=== PATIENT | male | born 1940 | race Caucasian/White ===

== ENCOUNTER → 2017-09-09 | Outpatient (CLI) | payer MEDICARE, SELFPAY ==
[~2017-09-09] MED LIST: ABAC300; ACET325 PO; ALBU90OI; ALBU90OI6 INH; ALUM-MAG HYDRO360 ML PO; ALUM320SU PO; AMLO10 PO; AMLO5 PO; ASCO500 PO; ASPI325; ASPI81CH PO; ASPI81EC PO; Adult Low Dose81 MG PO; Avodart0.5 MG PO; Bactrim 400-801 EACH; Bactrim 400-801 EACH PO; CARV6.25 PO; CHOL10002 PO; CIPR250 PO; CIPR500 PO; CLON.5 PO; CLOP75; CLOP75 PO; Cipro500 MG PO; Coreg6.25 MG PO; DIALYVITE WITH1 EACH; DULO30 PO; DUTA.5 PO; Dialyvite Tabl1 EACH PO; Doxycycline150 MG PO; FERR325 PO; FURO80 PO; GABA100 PO; HYDACE5325 PO; HYDCHL25 PO; HYDROCODON-ACE1 EAC2 PO; Hydrochlorothia25 MG PO; IBUP800 PO; Isosorbide Mono30 MG PO; LIDO700A20 TOP; LOSA25 PO; LOSA50 PO; MAG-OXIDE200 MG PO; METO25ER; NITR.3SL SL; NITR.4SL SL; NYST100000 PO; Norco 10-325 T1 EACH PO; Norvasc2.5 MG PO; Norvasc5 MG PO; OLOP.1OPSO; OMEP40CA12 PO; OXYACE5T PO; Omeprazole20 M1; PANT20 PO; PRAV20 PO; PRED20 PO; PREG75 PO; Percocet 5-3251 EACH PO; Prednisone20 MG PO; RANI150 PO; RXOXYACE PO; Rena-Vite Tabl0.8 MG PO; Robaxin-750750 MG PO; SEVE800 PO; SILD50TA PO; SODBIC650 PO; Super B With V1 EACH PO; Super B-50 Com1 EACH PO; TAMS.4ER; TAMS.4ER PO; TELM40; TESTTP TOP; TRAM50 PO; XARELTO15 MG PO; Zofran Odt4 MG PO
[2017-09-09 07:41] LABS: BASOPHILS ABSOLUTE AUTO 0.06 K/mm3 (0.00-0.23); BASOPHILS PERCENT AUTO 1 % (0-2); EOSINOPHILS ABSOLUTE AUTO 0.02 K/mm3 (0.00-0.68); EOSINOPHILS PERCENT AUTO 0 % (0-6); Hematocrit 35.8 % (37.0-53.0); Hemoglobin 11.6 g/dL (13.5-17.5); IMMATURE GRAN ABSOLUTE AUTO 0.13 K/mm3 (0.00-0.10); IMMATURE GRAN PERCENT AUTO 2 % (0-1); LYMPHOCYTES ABSOLUTE AUTO 1.67 K/mm3 (0.84-5.20); LYMPHOCYTES PERCENT AUTO 20 % (21-46); MONOCYTES ABSOLUTE AUTO 0.64 K/mm3 (0.16-1.47); MONOCYTES PERCENT AUTO 8 % (4-13); Mean Corpuscular HGB 31.2 pg (26.0-34.0); Mean Corpuscular HGB Conc 32.4 g/dL (31.5-36.5); Mean Corpuscular Volume 96 fL (80-100); Mean Platelet Volume 9.5 fL (9.1-12.4); NEUTROPHILS ABSOLUTE AUTO 5.76 K/mm3 (1.96-9.15); NEUTROPHILS PERCENT AUTO 70 % (41-73); Platelet Count 258 K/mm3 (150-400); RDW Coefficient Variation 14.6 % (11.7-14.2); RDW Standard Deviation 51.9 fL (35.1-46.3); Red Blood Cell Count 3.72 M/mm3 (4.30-5.90); White Blood Cell Count 8.28 K/mm3 (4.00-11.30)
== END | disposition home or self-care (01) ==
LOC: LAB 06:50
PROVIDERS: Internal Medicine
DX: N18.6 End stage renal disease (principal)
CPT/HCPCS: 85025

== ENCOUNTER 2017-10-02 13:15 | Emergency (ER) | payer MEDICARE, SELFPAY ==
[~2017-10-02] VITALS: Ht 175.3 cm; Wt 73.5 kg
[~2017-10-02 13:15] MED LIST changes: -ACET325 PO; -Avodart0.5 MG PO; -CLOP75 PO; -DULO30 PO; -Dialyvite Tabl1 EACH PO; -Doxycycline150 MG PO; -LIDO700A20 TOP; -PREG75 PO; -SEVE800 PO; -TRAM50 PO
[2017-10-02 13:53] LABS: BASOPHILS ABSOLUTE AUTO 0.05 K/mm3 (0.00-0.23); BASOPHILS PERCENT AUTO 1 % (0-2); EOSINOPHILS ABSOLUTE AUTO 0.16 K/mm3 (0.00-0.68); EOSINOPHILS PERCENT AUTO 3 % (0-6); Hematocrit 31.8 % (37.0-53.0); IMMATURE GRAN ABSOLUTE AUTO 0.13 K/mm3 (0.00-0.10); IMMATURE GRAN PERCENT AUTO 2 % (0-1); LYMPHOCYTES ABSOLUTE AUTO 1.13 K/mm3 (0.84-5.20); LYMPHOCYTES PERCENT AUTO 18 % (21-46); MONOCYTES ABSOLUTE AUTO 1.62 K/mm3 (0.16-1.47); MONOCYTES PERCENT AUTO 26 % (4-13); Mean Corpuscular HGB 30.5 pg (26.0-34.0); Mean Corpuscular HGB Conc 31.4 g/dL (31.5-36.5); Mean Corpuscular Volume 97 fL (80-100); Mean Platelet Volume 9.8 fL (9.1-12.4); NEUTROPHILS PERCENT AUTO 51 % (41-73); Platelet Count 266 K/mm3 (150-400); RDW Coefficient Variation 13.4 % (11.7-14.2); RDW Standard Deviation 47.7 fL (35.1-46.3); Red Blood Cell Count 3.28 M/mm3 (4.30-5.90); White Blood Cell Count 6.29 K/mm3 (4.00-11.30)
[2017-10-02] MEDS ORDERED: DULO30 PO (13:56)
[2017-10-02] MEDS ORDERED: CLOP75 PO (13:58)
[2017-10-02 14:15] LABS: Albumin, Blood 2.8 g/dL (3.4-5.0); Albumin/Globulin Ratio 0.8 (0.8-1.8); Bilirubin, Total 0.4 mg/dL (0.1-1.0); Bun/Creatinine Ratio 3.3 (12.0-20.0); Calcium, Blood 8.5 mg/dL (8.5-10.1); Creatinine, Blood 3.04 mg/dL (0.60-1.20); Globulin, Blood 3.3 g/dL (2.2-4.0); Potassium, Blood 3.8 mmol/L (3.5-5.5); Total Protein, Blood 6.1 g/dL (6.4-8.2)
[2018-04-22] MEDS ORDERED: Avodart0.5 MG PO (16:39)
[2018-04-22] MEDS ORDERED: CHOL10002 PO (16:39)
[2018-04-22] MEDS ORDERED: Dialyvite Tabl1 EACH PO (16:39)
[2018-04-22] MEDS ORDERED: TRAM50 PO (16:40)
[2018-04-22] MEDS ORDERED: ACET325 PO (16:45)
[2018-04-22] MEDS ORDERED: PREG75 PO (16:45)
[2018-04-22] MEDS ORDERED: SEVE800 PO (16:45)
[2018-04-22] MEDS ORDERED: Doxycycline150 MG PO (16:46)
[2018-04-24] MEDS ORDERED: LIDO700A20 TOP (13:24)
== END 2017-10-02 17:17 | disposition home or self-care (01) ==
LOC: ER 13:15
PROVIDERS: Psychiatry & Neurology Psychiatry
DX: I95.1 Orthostatic hypotension (principal); R42 Dizziness and giddiness; Z88.5 Allergy status to narcotic agent; Z88.8 Allergy status to other drugs, medicaments and biological substances; Z79.899 Other long term (current) drug therapy; Z79.52 Long term (current) use of systemic steroids; Z79.82 Long term (current) use of aspirin; Z86.73 Personal history of transient ischemic attack (TIA), and cerebral infarction without residual deficits; Z87.891 Personal history of nicotine dependence; Z85.51 Personal history of malignant neoplasm of bladder
CPT/HCPCS: 36415; 70450; 80053; 85025; 93005; 93010; 99284

== ENCOUNTER → 2017-11-29 | Outpatient (CLI) | payer MEDICARE, SELFPAY ==
[~2017-11-29] MED LIST changes: +CLOP75 PO; +DULO30 PO; +LOSA25
[2017-11-29 12:43] LABS: Appearance, Urine Clear (Clear); Bilirubin, Urine Neg (Neg); Blood, Urine Neg (Neg); Color, Urine Yellow (P-Yellow); Glucose Qualitative, Urine Neg (Neg); Ketones, Urine Neg (Neg); Leukocyte Esterase, Urine Neg (Neg); Nitrite, Urine Neg (Neg); Protein, Urine 3+ (Neg); Specific Gravity, Urine 1.015 (1.003-1.022); Urobilinogen, Urine NORM (Normal)
[2017-11-29 12:55] LABS: Red Blood Cells, Urine 0-2 /hpf (0-2); Squamous Epithelial Cells Few /hpf (Few)
[2017-11-29 12:56] LABS: Bacteria Not Seen /hpf
== END ==
LOC: LAB 10:15 → LAB SHORT 10:15
PROVIDERS: Internal Medicine
DX: R39.15 Urgency of urination (principal)
CPT/HCPCS: 81001

== ENCOUNTER → 2018-02-16 | Outpatient (CLI) | payer MEDICARE ==
[2018-02-16 16:48] LABS: BASOPHILS ABSOLUTE AUTO 0.05 K/mm3 (0.00-0.23); BASOPHILS PERCENT AUTO 1 % (0-2); EOSINOPHILS ABSOLUTE AUTO 0.12 K/mm3 (0.00-0.68); EOSINOPHILS PERCENT AUTO 1 % (0-6); Hematocrit 33.5 % (37.0-53.0); Hemoglobin 10.9 g/dL (13.5-17.5); IMMATURE GRAN ABSOLUTE AUTO 0.09 K/mm3 (0.00-0.10); IMMATURE GRAN PERCENT AUTO 1 % (0-1); LYMPHOCYTES ABSOLUTE AUTO 1.31 K/mm3 (0.84-5.20); LYMPHOCYTES PERCENT AUTO 12 % (21-46); MONOCYTES ABSOLUTE AUTO 1.47 K/mm3 (0.16-1.47); MONOCYTES PERCENT AUTO 14 % (4-13); Mean Corpuscular HGB 29.5 pg (26.0-34.0); Mean Corpuscular HGB Conc 32.5 g/dL (31.5-36.5); Mean Corpuscular Volume 91 fL (80-100); Mean Platelet Volume 10.5 fL (9.1-12.4); NEUTROPHILS ABSOLUTE AUTO 7.78 K/mm3 (1.96-9.15); NEUTROPHILS PERCENT AUTO 72 % (41-73); Platelet Count 270 K/mm3 (150-400); RDW Coefficient Variation 14.2 % (11.7-14.2); RDW Standard Deviation 46.2 fL (35.1-46.3); Red Blood Cell Count 3.69 M/mm3 (4.30-5.90); White Blood Cell Count 10.82 K/mm3 (4.00-11.30)
[2018-02-16 17:02] LABS: Albumin, Blood 2.9 g/dL (3.4-5.0); Albumin/Globulin Ratio 0.7 (0.8-1.8); Bilirubin, Total 0.3 mg/dL (0.1-1.0); Calcium, Blood 9.3 mg/dL (8.5-10.1); Potassium, Blood 4.4 mmol/L (3.5-5.5); Total Protein, Blood 6.9 g/dL (6.4-8.2)
[2018-02-16 17:10] LABS: Source, Urine Clean Catch
[2018-02-16 17:13] LABS: Creatinine, Blood 8.38 mg/dL (0.60-1.20)
[2018-02-16 17:33] LABS: Bacteria Mod /hpf; Squamous Epithelial Cells Few /hpf (Few); White Blood Cells, Urine TNTC /hpf (0-5)
== END | disposition home or self-care (01) ==
LOC: LAB SHORT 16:44 → LAB EV 16:44
PROVIDERS: General Practice
DX: R30.0 Dysuria (principal)
CPT/HCPCS: 80053; 81015; 85025

== ENCOUNTER → 2019-02-22 | Outpatient (CLI) | payer MEDICARE ==
[~2019-02-22] MED LIST changes: +ACET325 PO; +Avodart0.5 MG PO; +Dialyvite Tabl1 EACH PO; +Doxycycline150 MG PO; +LIDO700A20 TOP; -LOSA25; +PREG75 PO; +SEVE800 PO; +TRAM50 PO
== END | disposition home or self-care (01) ==
LOC: LAB SHORT 12:51 → LAB EV 12:51
DX: L03.116 Cellulitis of left lower limb (principal)
CPT/HCPCS: 87070; 87205

== ENCOUNTER 2019-04-10 14:02 | Emergency (ER) | payer MEDICARE ==
[~2019-04-10] VITALS: Ht 175.3 cm; Wt 72.6 kg
[2019-04-10 14:35] LABS: BASOPHILS ABSOLUTE AUTO 0.07 K/mm3 (0.00-0.23); BASOPHILS PERCENT AUTO 1 % (0-2); EOSINOPHILS ABSOLUTE AUTO 0.15 K/mm3 (0.00-0.68); EOSINOPHILS PERCENT AUTO 1 % (0-6); Hematocrit 38.9 % (37.0-53.0); Hemoglobin 12.3 g/dL (13.5-17.5); IMMATURE GRAN ABSOLUTE AUTO 0.04 K/mm3 (0.00-0.10); IMMATURE GRAN PERCENT AUTO 0 % (0-1); LYMPHOCYTES ABSOLUTE AUTO 2.02 K/mm3 (0.84-5.20); LYMPHOCYTES PERCENT AUTO 15 % (21-46); MONOCYTES ABSOLUTE AUTO 1.82 K/mm3 (0.16-1.47); MONOCYTES PERCENT AUTO 14 % (4-13); Mean Corpuscular HGB 30.8 pg (26.0-34.0); Mean Corpuscular HGB Conc 31.6 g/dL (31.5-36.5); Mean Corpuscular Volume 97 fL (80-100); Mean Platelet Volume 9.8 fL (9.1-12.4); NEUTROPHILS ABSOLUTE AUTO 9.07 K/mm3 (1.96-9.15); NEUTROPHILS PERCENT AUTO 69 % (41-73); Platelet Count 231 K/mm3 (150-400); RDW Coefficient Variation 13.8 % (11.7-14.2); RDW Standard Deviation 49.9 fL (35.1-46.3); White Blood Cell Count 13.17 K/mm3 (4.00-11.30)
[2019-04-10 14:50] LABS: International Normalized Ratio 1.01; Prothrombin Time Results 10.7 Sec (9.7-11.5)
[2019-04-10 14:58] LABS: Source, Urine Catheter
[2019-04-10 15:04] LABS: Albumin/Globulin Ratio 0.8 (0.8-1.8); Bilirubin, Total 0.3 mg/dL (0.1-1.0); Bun/Creatinine Ratio 11.7 (12.0-20.0); Calcium, Blood 8.6 mg/dL (8.5-10.1); Creatinine, Blood 7.18 mg/dL (0.60-1.20); Potassium, Blood 5.6 mmol/L (3.5-5.5)
[2019-04-10 15:05] LABS: Appearance, Urine Hazy (Clear); Bilirubin, Urine Neg (Neg); Blood, Urine 2+ (Neg); Color, Urine Yellow (P-Yellow); Glucose Qualitative, Urine Neg (Neg); Ketones, Urine Neg (Neg); Leukocyte Esterase, Urine 3+ (Neg); Nitrite, Urine Neg (Neg); Protein, Urine 3+ (Neg); Specific Gravity, Urine 1.015 (1.003-1.022); Urobilinogen, Urine NORM (Normal)
[2019-04-10 15:25] LABS: White Blood Cells, Urine 50-100 /hpf (0-5)
[2019-04-10 15:26] LABS: Bacteria Mod /hpf; Squamous Epithelial Cells Mod /hpf (Few)
--- NOTE | 2019-04-10 17:01 | NUR ---
PERITONEAL EFFLUENT SAMPLE OBTAINED FROM PATIENT ADMITTED TO ED DUE TO COMPLAINT OF STEWART BLOOD IN CCPD LAST DRAIN THIS MORNING. DR MARAVILLA ORDERED CULTURE, GRAM STAIN, CELL COUNT AND DIFFERENTIAL. SAMPLE OBTAINED AND TRANSPORTED TO LAB. SAMPLE APPEARANCE IS CLEAR, TATUM, WITH NO EVIDENT RBC'S.
[2019-04-10 17:12] LABS: Automated BF WBC Count 0.023 K/mm3 (0-999); Body Fluid WBC Count 23 /mm3 (0-999)
[2019-04-10 17:37] LABS: RBC Count, Body Fluid 26 /mm3 (0-0)
[2019-04-10 17:57] LABS: Appearance, Body Fluid Clear (Clear); Color, Body Fluid No color (None-Yellow); Total Cell Count, Body Fluid 100
== END 2019-04-10 18:51 | disposition home or self-care (01) ==
LOC: ER 14:02
PROVIDERS: Internal Medicine; Physician Assistant
DX: T83.83XA Hemorrhage due to genitourinary prosthetic devices, implants and grafts, initial encounter (principal); N18.6 End stage renal disease; N39.0 Urinary tract infection, site not specified; N19 Unspecified kidney failure; Z88.5 Allergy status to narcotic agent; Z88.8 Allergy status to other drugs, medicaments and biological substances; Z79.82 Long term (current) use of aspirin; Z79.899 Other long term (current) drug therapy; Z86.73 Personal history of transient ischemic attack (TIA), and cerebral infarction without residual deficits; Z87.891 Personal history of nicotine dependence
CPT/HCPCS: 36415; 71046; 74176; 80053; 81001; 83605; 85025; 85610; 85730; 87040; 87070; 87086; 87205; 89051; 93005; 93010; 99284-25

== ENCOUNTER 2019-07-14 14:05 | Emergency (ER) | payer MEDICARE ==
[~2019-07-14] VITALS: Ht 175.3 cm; Wt 72.6 kg
[2019-07-14 15:10] LABS: BASOPHILS ABSOLUTE AUTO 0.06 K/mm3 (0.00-0.23); BASOPHILS PERCENT AUTO 1 % (0-2); EOSINOPHILS ABSOLUTE AUTO 0.16 K/mm3 (0.00-0.68); EOSINOPHILS PERCENT AUTO 2 % (0-6); Hemoglobin 9.4 g/dL (13.5-17.5); IMMATURE GRAN ABSOLUTE AUTO 0.02 K/mm3 (0.00-0.10); IMMATURE GRAN PERCENT AUTO 0 % (0-1); LYMPHOCYTES ABSOLUTE AUTO 1.42 K/mm3 (0.84-5.20); LYMPHOCYTES PERCENT AUTO 15 % (21-46); MONOCYTES PERCENT AUTO 14 % (4-13); Mean Corpuscular HGB 32.4 pg (26.0-34.0); Mean Corpuscular HGB Conc 31.3 g/dL (31.5-36.5); Mean Corpuscular Volume 103 fL (80-100); Mean Platelet Volume 9.7 fL (9.1-12.4); NEUTROPHILS ABSOLUTE AUTO 6.48 K/mm3 (1.96-9.15); NEUTROPHILS PERCENT AUTO 69 % (41-73); Platelet Count 252 K/mm3 (150-400); RDW Coefficient Variation 16.4 % (11.7-14.2); RDW Standard Deviation 60.9 fL (35.1-46.3); White Blood Cell Count 9.44 K/mm3 (4.00-11.30)
[2019-07-14 15:33] LABS: Troponin I <0.015 ng/mL (0.000-0.040)
[2019-07-14 15:41] LABS: Alanine Aminotransfer (ALT/SGP 17 U/L (12-78); Albumin, Blood 2.9 g/dL (3.4-5.0); Albumin/Globulin Ratio 0.8 (0.8-1.8); Alk Phos 49 U/L (50-136); Anion Gap 10 mmol/L (6-16); Aspartate Aminotrans (AST/SGOT 13 U/L (12-37); Bilirubin, Total 0.3 mg/dL (0.1-1.0); Blood Urea Nitrogen 77 mg/dL (8-24); Bun/Creatinine Ratio 8.7 (12.0-20.0); CO2, Blood 28 mmol/L (21-32); Calcium, Blood 9.1 mg/dL (8.5-10.1); Chloride, Blood 102 mmol/L (98-108); Creatinine, Blood 8.88 mg/dL (0.60-1.20); Globulin, Blood 3.6 g/dL (2.2-4.0); Glomerular Filtration Rate 6 (60-); Glucose, Blood 141 mg/dL (70-99); Potassium, Blood 4.5 mmol/L (3.5-5.5); Sodium, Blood 140 mmol/L (136-145); Total Protein, Blood 6.5 g/dL (6.4-8.2)
[2019-07-14] MEDS ORDERED: QUET25 PO (15:58)
== END 2019-07-14 16:08 | disposition home or self-care (01) ==
LOC: ER 14:05
PROVIDERS: Physician Assistant
DX: G47.00 Insomnia, unspecified (principal); F41.1 Generalized anxiety disorder; Z88.8 Allergy status to other drugs, medicaments and biological substances; Z88.5 Allergy status to narcotic agent; Z88.1 Allergy status to other antibiotic agents; Z79.899 Other long term (current) drug therapy; Z79.82 Long term (current) use of aspirin; Z79.891 Long term (current) use of opiate analgesic; N18.6 End stage renal disease; Z99.2 Dependence on renal dialysis; I48.91 Unspecified atrial fibrillation; Z87.891 Personal history of nicotine dependence
CPT/HCPCS: 36415; 71046; 80053; 84484; 85025; 93005; 93010; 99284-25

== ENCOUNTER → 2019-08-28 | Outpatient (CLI) | payer MEDICARE ==
[~2019-08-28] MED LIST changes: +QUET25 PO
[2019-08-28 15:50] LABS: Bilirubin, Urine Neg (Neg); Blood, Urine 2+ (Neg); Glucose Qualitative, Urine Neg (Neg); Ketones, Urine Neg (Neg); Leukocyte Esterase, Urine 3+ (Neg); Nitrite, Urine Neg (Neg); Protein, Urine 2+ (Neg); Urobilinogen, Urine NORM (Normal); pH, Urine 6.5 (5.0-8.0)
[2019-08-28 16:05] LABS: Appearance, Urine Cloudy (Clear); Color, Urine Yellow (P-Yellow)
[2019-08-28 16:06] LABS: Bacteria Many /hpf; Squamous Epithelial Cells Not Seen /hpf (Few); White Blood Cells, Urine TNTC /hpf (0-5)
== END | disposition home or self-care (01) ==
LOC: LAB SHORT 14:58 → OLS 14:58
PROVIDERS: Internal Medicine
DX: N39.0 Urinary tract infection, site not specified (principal); R10.9 Unspecified abdominal pain
CPT/HCPCS: 81001; 87077; 87086; 87186

== ENCOUNTER 2019-09-18 18:15 | Emergency (ER) | payer MEDICARE ==
[~2019-09-18] VITALS: Ht 182.9 cm; Wt 81.7 kg
[2019-09-18] MEDS ORDERED: DIALYVITE 800-1 EAC1 PO (19:22)
[2019-09-18] MEDS ORDERED: CLON.5 PO (19:23)
[2019-09-18] MEDS ORDERED: LOSA25 PO (19:23)
[2019-09-18] MEDS ORDERED: Avodart0.5 MG PO (19:23)
[2019-09-18] MEDS ORDERED: TRAM50 PO (19:24)
[2019-09-18] MEDS ORDERED: FURO80 PO (19:24)
[2019-09-18] MEDS ORDERED: CLOP75 PO (19:24)
[2019-09-18] MEDS ORDERED: Vitamin D2000 UNIT PO (19:24)
[2019-09-18] MEDS ORDERED: Aspirin EC81 MG PO (19:24)
[2019-09-18] MEDS ORDERED: Isosorbide Mono30 MG PO (19:25)
[2019-09-18] MEDS ORDERED: CARV6.25 PO (19:25)
[2019-09-18] MEDS ORDERED: PANT20 PO (19:25)
[2019-09-18] MEDS ORDERED: Pravachol40 MG PO (19:25)
[2019-09-18] MEDS ORDERED: NITR.4SL SL (19:26)
[2019-09-18] MEDS ORDERED: ACET325 PO (19:26)
[2019-09-18] MEDS ORDERED: QUET25 PO (19:27)
[2019-09-18] MEDS ORDERED: Calcium Acetat667 MG PO (19:27)
== END 2019-09-18 23:00 | disposition home or self-care (01) ==
LOC: ER 18:15
DX: F41.9 Anxiety disorder, unspecified (principal); K40.90 Unilateral inguinal hernia, without obstruction or gangrene, not specified as recurrent; Z99.2 Dependence on renal dialysis; Z88.5 Allergy status to narcotic agent; Z88.8 Allergy status to other drugs, medicaments and biological substances; Z79.82 Long term (current) use of aspirin; Z79.899 Other long term (current) drug therapy; N18.6 End stage renal disease; I48.91 Unspecified atrial fibrillation; Z87.891 Personal history of nicotine dependence
CPT/HCPCS: 76857; 96374; 96375; 99284-25; J1170; J2405

== ENCOUNTER 2019-09-22 15:46 | Observation (INO) | payer MEDICARE, OTHER ==
[~2019-09-22] VITALS: Ht 175.3 cm; Wt 72.6 kg
[~2019-09-22 15:46] MED LIST changes: +Aspirin EC81 MG PO; +Calcium Acetat667 MG PO; +DIALYVITE 800-1 EAC1 PO; +Pravachol40 MG PO; +Vitamin D2000 UNIT PO
[2019-09-22 18:56] LABS: BASOPHILS ABSOLUTE AUTO 0.05 K/mm3 (0.00-0.23); BASOPHILS PERCENT AUTO 0 % (0-2); EOSINOPHILS ABSOLUTE AUTO 0.14 K/mm3 (0.00-0.68); EOSINOPHILS PERCENT AUTO 1 % (0-6); Hematocrit 36.4 % (37.0-53.0); Hemoglobin 11.4 g/dL (13.5-17.5); IMMATURE GRAN ABSOLUTE AUTO 0.03 K/mm3 (0.00-0.10); IMMATURE GRAN PERCENT AUTO 0 % (0-1); LYMPHOCYTES ABSOLUTE AUTO 1.22 K/mm3 (0.84-5.20); LYMPHOCYTES PERCENT AUTO 11 % (21-46); MONOCYTES PERCENT AUTO 13 % (4-13); Mean Corpuscular HGB 31.4 pg (26.0-34.0); Mean Corpuscular HGB Conc 31.3 g/dL (31.5-36.5); Mean Corpuscular Volume 100 fL (80-100); Mean Platelet Volume 9.9 fL (9.1-12.4); NEUTROPHILS ABSOLUTE AUTO 8.44 K/mm3 (1.96-9.15); NEUTROPHILS PERCENT AUTO 74 % (41-73); Platelet Count 266 K/mm3 (150-400); RDW Standard Deviation 51.8 fL (35.1-46.3); Red Blood Cell Count 3.63 M/mm3 (4.30-5.90); White Blood Cell Count 11.38 K/mm3 (4.00-11.30)
[2019-09-22 19:13] LABS: Albumin, Blood 2.7 g/dL (3.4-5.0); Albumin/Globulin Ratio 0.7 (0.8-1.8); Bilirubin, Total 0.3 mg/dL (0.1-1.0); Bun/Creatinine Ratio 8.3 (12.0-20.0); Calcium, Blood 9.3 mg/dL (8.5-10.1); Creatinine, Blood 7.96 mg/dL (0.60-1.20); Globulin, Blood 4.1 g/dL (2.2-4.0); Potassium, Blood 4.8 mmol/L (3.5-5.5); Total Protein, Blood 6.8 g/dL (6.4-8.2)
[2019-09-22] MEDS ORDERED: PLAVIX75 MG PO (20:10)
--- NOTE | 2019-09-23 00:14 | NUR ---
79 yr old male admitted to floor from the ED with inguinsl hernia apparently caused by his peritoneal dialysis. Chief complaint is bilateral groin pain. Right sided hernia hangs into scrotum. Possible placement of port for dialysis, even though he has an AV fistula in left upper arm. Aleert and oriented x 4. Up ad mega. Received Ultram for pain earlier - see MAR for details. Orineted to call light. Call light in reach.
--- NOTE | 2019-09-23 04:18 | NUR ---
PT HAS BEEN RESTING QUIETLY WITH FEW INTERRUPTIONS SINCE LAST NOTE. CALL LIGHT IN REACH.
[2019-09-23 05:46] LABS: BASOPHILS ABSOLUTE AUTO 0.05 K/mm3 (0.00-0.23); BASOPHILS PERCENT AUTO 1 % (0-2); EOSINOPHILS ABSOLUTE AUTO 0.33 K/mm3 (0.00-0.68); EOSINOPHILS PERCENT AUTO 3 % (0-6); Hematocrit 31.8 % (37.0-53.0); Hemoglobin 10.1 g/dL (13.5-17.5); IMMATURE GRAN ABSOLUTE AUTO 0.04 K/mm3 (0.00-0.10); IMMATURE GRAN PERCENT AUTO 0 % (0-1); LYMPHOCYTES ABSOLUTE AUTO 1.84 K/mm3 (0.84-5.20); LYMPHOCYTES PERCENT AUTO 17 % (21-46); MONOCYTES ABSOLUTE AUTO 1.72 K/mm3 (0.16-1.47); MONOCYTES PERCENT AUTO 16 % (4-13); Mean Corpuscular HGB 31.6 pg (26.0-34.0); Mean Corpuscular HGB Conc 31.8 g/dL (31.5-36.5); Mean Corpuscular Volume 99 fL (80-100); Mean Platelet Volume 9.8 fL (9.1-12.4); NEUTROPHILS ABSOLUTE AUTO 6.61 K/mm3 (1.96-9.15); NEUTROPHILS PERCENT AUTO 62 % (41-73); Platelet Count 238 K/mm3 (150-400); RDW Coefficient Variation 13.7 % (11.7-14.2); RDW Standard Deviation 49.7 fL (35.1-46.3); White Blood Cell Count 10.59 K/mm3 (4.00-11.30)
[2019-09-23 06:18] LABS: Bun/Creatinine Ratio 8.6 (12.0-20.0); Calcium, Blood 8.7 mg/dL (8.5-10.1); Creatinine, Blood 8.33 mg/dL (0.60-1.20); Potassium, Blood 4.3 mmol/L (3.5-5.5)
--- NOTE | 2019-09-23 18:39 | NUR ---
SHIFT SUMMARY PATIENT MEDCIATED X3 FOR PAIN THIS SHIFT AND X1 FOR NAUSEA. DENEIS SHORTNESS OF BREATH. PATIENT UP SBA TO BATHROOM. PATIENT STRAIGHT CATHS HIMSELF. PATIENT RECIEVED HEMODIALYSIS TODAY. PATIENT WILL HAVE SURGICAL CONSULT TOMORROW FOR POSSIBLE SURGERY ON HIS INGUINAL HERNIA. CALL KARLENE HERNANDEZ.
--- NOTE | 2019-09-24 05:48 | NUR ---
FLIGHT PURSER SUMMARY. Patient slept well after HS medication. He did get oob and straight cath himself X3 overnight for total of 300 ml of clear lizzy/yellow urine. Received requested clonazepam at bedtime as he stated he was feeling anxious. lung sounds clear, AP regular to auscultation. trace non pitting lower extremity edema. Also medicated for pain (hernia/abd) at HS.
--- NOTE | 2019-09-24 17:08 | NUR ---
SHIFT SUMMARY PATIENT MEDICATED X 2 FOR PAIN THIS SHIFT. DENIES NAUSEA AND SHORTNESS OF BREATH. PATIENT UP SBA IN ROOM. PATIENT SEEN BY DR. GLOVER TODAY. PATIENT WILL BE PLACED ON SATURDAY SURGERY SCHEDULE IF POSSIBLE. PATIENT NEEDS TO BE OFF PLAVIX A FEW MORE DAYS. PATIENT ATTEMPTED TO WALK IN HALLWAY TO STRETCH LEGS BUT HIS HERNIA BECAME PAINFUL AND PATIENT HAD TO RETURN TO BED. CALL LIGHT IN REACH.
--- NOTE | 2019-09-25 05:55 | NUR ---
SHIFT SUMMARY PT IS AN 79 Y/O MALE, ADMITTED FOR ESRD. PT IS A PERITONEAL DIALYSIS PT, CURRENTLY ON HEMODIALYSIS DUE TO AN IGUINAL HERNIA. CURRENTLY AWAITING SURGERY. PT IS A&O X 4, INDEPENDENT IN THE ROOM. HE WAS MEDICATED FOR PAIN WITH PRN TRAMADOL AND TYLENOL. NO COMPLAINTS OF SOB OR NAUSEA. VITAL SIGNS STABLE. NO OTHER ACUTE CHANGES IN PT CONDITION NOTED. WILL CONTINUE TO MONITOR AND TREAT PER EMAR UNTIL HAND OFF TO DAY SHIFT RN.
--- NOTE | 2019-09-25 16:16 | NUR ---
SHIFT SUMMARY PATIENT MEDICATED X2 FOR PAIN AND X1 FOR NAUSEA THIS SHIFT. DENIES SHORTNESS OF BREATH. PATIENT UP INDEPENDENT/SBA TO BATHROOM. PATIENT STRAIGHT CATHS HIMSELF. PATIENT HAD DIALYSIS TODAY. PATIENT WALKED BRIEFLY IN PERDOMO AGAIN TODAY BUT WAS PAINFUL. CALL LIGHT IN REACH.
--- NOTE | 2019-09-26 05:39 | NUR ---
SHIFT SUMMARY PATIENT ALERT AND ORIENTED. HAS BEEN HAVING CONSTANT PAIN DUE TO HIS HERNIA. PATIENT MEDICATED PER EMAR. PATIENT MADE NPO AT 0000 PER ORDER FOR SURGERY TODAY. IV PATENT AND FLUSHED. BED IN THE LOWEST POSITION WITH WHEELS LOCKED. CALL LIGHT WITHIN REACH. REPORT GIVEN TO ONCOMING RN.
--- NOTE | 2019-09-26 11:09 | NUR ---
PT TO OR VIA STACY
--- NOTE | 2019-09-26 13:50 | NUR ---
recieved patient from OR recieved report from annesthesiologist. vss patient awake talking to staff.
--- NOTE | 2019-09-26 14:35 | NUR ---
GAVE REPORT PATIENT TAKEN BACK TO MED FLOOR ROOM 336
--- NOTE | 2019-09-26 14:45 | NUR ---
PT RETURNED FROM PACU, AWAKE AND A/O. REPORTS PAIN AT A 6/10, WILL MEDICATE PER EMAR. APPEARS TO HAVE TOLERATED PROCEDURE WELL, DRESSING AT RT GROIN C/D/I. WILL CONTINUE TO MONITOR
--- NOTE | 2019-09-26 18:09 | NUR ---
PT APPEARS TO HAVE TOLERATED HERNIA REPAIR WELL, AWAKE, A/O, ON RA, VSS, WANTING TO EAT. RESUME DIET ORDER RECEIVED FROM DR GLOVER. REPORTS X2 OF RT GROIN PAIN AND PT MEDICATED FIRST WITH TYLENOL AND SECOND WITH IV FENTANYL. PT EATING AND VISITING WITH FAMILY AT THIS TIME. WILL CONTINUE TO MONITOR AND REPORT TO ONCOMING RN
--- NOTE | 2019-09-27 05:32 | NUR ---
SHIFT SUMMARY PATIENT ALERT AND ORIENTED. ABLE TO AMBULATE INDEPENDENTLY. HAS BEEN HAVING RIGHT INGUINAL PAIN AFTER THE SURGERY TO FIX HIS HERNIA. PATIENT MEDICATED PER EMAR. DRESSING CLEAN, DRY, AND INTACT. NO DRAINAGE NOTED. PATIENT REPORTED THAT THE MINING HELPER TO AND IMPLANT IN HIS BACK HAD GONE MISSING FROM HIS ROOM. BILINGUAL SCHOOL PSYCHOLOGIST AND THIS NURSE SEARCHED THE ENTIRE ROOM. THIS NURSE ALERTED THE CHARGE NURSE AND SEARCHED THE ROOM AGAIN. THE TRASH IN THE ROOM WAS SEARCHED ALONG WITH THE LAUNDRY IN THE SOILED HOLDS ON THE MEDICAL FLOOR. THE NURSING LEGAL COORDINATOR WAS ALSO ALERTED AND SEARCHED THE BAY IN THE OR WHERE THE PATIENT WAS HELD WHILE AWAITING SURGERY. IV PATENT AND FLUSHED. BED IN LOWEST POSITION WITH WHEELS LOCKED. CALL LIGHT WITHIN REACH. REPORT GIVEN TO ONCOMING RN.
[2019-09-27 05:38] LABS: BASOPHILS ABSOLUTE AUTO 0.02 K/mm3 (0.00-0.23); BASOPHILS PERCENT AUTO 0 % (0-2); EOSINOPHILS PERCENT AUTO 0 % (0-6); Hematocrit 30.5 % (37.0-53.0); Hemoglobin 9.7 g/dL (13.5-17.5); IMMATURE GRAN ABSOLUTE AUTO 0.05 K/mm3 (0.00-0.10); IMMATURE GRAN PERCENT AUTO 0 % (0-1); LYMPHOCYTES ABSOLUTE AUTO 1.37 K/mm3 (0.84-5.20); LYMPHOCYTES PERCENT AUTO 8 % (21-46); MONOCYTES ABSOLUTE AUTO 1.94 K/mm3 (0.16-1.47); MONOCYTES PERCENT AUTO 11 % (4-13); Mean Corpuscular HGB 30.8 pg (26.0-34.0); Mean Corpuscular HGB Conc 31.8 g/dL (31.5-36.5); Mean Corpuscular Volume 97 fL (80-100); Mean Platelet Volume 9.9 fL (9.1-12.4); NEUTROPHILS ABSOLUTE AUTO 14.36 K/mm3 (1.96-9.15); NEUTROPHILS PERCENT AUTO 81 % (41-73); Platelet Count 246 K/mm3 (150-400); RDW Coefficient Variation 13.4 % (11.7-14.2); RDW Standard Deviation 46.8 fL (35.1-46.3); Red Blood Cell Count 3.15 M/mm3 (4.30-5.90); White Blood Cell Count 17.74 K/mm3 (4.00-11.30)
[2019-09-27 06:12] LABS: Albumin, Blood 2.3 g/dL (3.4-5.0); Anion Gap 8 mmol/L (6-16); Blood Urea Nitrogen 50 mg/dL (8-24); Bun/Creatinine Ratio 7.6 (12.0-20.0); CO2, Blood 26 mmol/L (21-32); Calcium, Blood 8.5 mg/dL (8.5-10.1); Chloride, Blood 97 mmol/L (98-108); Creatinine, Blood 6.62 mg/dL (0.60-1.20); Glomerular Filtration Rate 9 (60-); Glucose, Blood 163 mg/dL (70-99); Magnesium, Blood 2.2 mg/dL (1.6-2.4); Phosphorus, Blood 4.4 mg/dL (2.5-4.9); Potassium, Blood 4.5 mmol/L (3.5-5.5); Sodium, Blood 131 mmol/L (136-145)
--- NOTE | 2019-09-27 18:15 | NUR ---
DR GLOVER AT BEDSIDE, OKAY TO REMOVE GROIN DRESSING TOMORROW AND PT MAY THEN SHOWER. OKAY WITH DR GLOVER FOR PT TO DISCHARGE TOMORROW IF MEDICAL DR AGREES.
--- NOTE | 2019-09-27 18:46 | NUR ---
PT TO DIALYSIS THIS MORNING AND TOLERATED WELL, MEDICATED WITH PO NORCO TODAY, SEE EMAR. PT EXPRESSING INCREASED BACK PAIN HIS IMPLANTED PAIN UNIT IS NOW UNCHARGED D/T THE STABLEHAND BEING LOST YESTERDAY. PER DR GLOVER PT MAY REMOVE RT GROIN DRESSING TOMORROW AND SHOWER, MAY ALSO DISCHARGE HOME IF MEDICAL DR IS AGREEABLE. NO ACUTE CHANGES NOTED THIS SHIFT, WILL CONTINUE TO MONITOR AND REPORT TO ON COMING RN
[2019-09-28 05:59] LABS: BASOPHILS ABSOLUTE AUTO 0.04 K/mm3 (0.00-0.23); BASOPHILS PERCENT AUTO 0 % (0-2); EOSINOPHILS ABSOLUTE AUTO 0.18 K/mm3 (0.00-0.68); EOSINOPHILS PERCENT AUTO 2 % (0-6); Hematocrit 29.1 % (37.0-53.0); Hemoglobin 9.2 g/dL (13.5-17.5); IMMATURE GRAN ABSOLUTE AUTO 0.04 K/mm3 (0.00-0.10); IMMATURE GRAN PERCENT AUTO 0 % (0-1); LYMPHOCYTES ABSOLUTE AUTO 1.76 K/mm3 (0.84-5.20); LYMPHOCYTES PERCENT AUTO 16 % (21-46); MONOCYTES ABSOLUTE AUTO 1.67 K/mm3 (0.16-1.47); MONOCYTES PERCENT AUTO 15 % (4-13); Mean Corpuscular HGB Conc 31.6 g/dL (31.5-36.5); Mean Corpuscular Volume 98 fL (80-100); Mean Platelet Volume 9.8 fL (9.1-12.4); NEUTROPHILS ABSOLUTE AUTO 7.69 K/mm3 (1.96-9.15); NEUTROPHILS PERCENT AUTO 67 % (41-73); Platelet Count 226 K/mm3 (150-400); RDW Coefficient Variation 13.5 % (11.7-14.2); RDW Standard Deviation 47.8 fL (35.1-46.3); Red Blood Cell Count 2.97 M/mm3 (4.30-5.90); White Blood Cell Count 11.38 K/mm3 (4.00-11.30)
[2019-09-28 06:14] LABS: Albumin, Blood 2.3 g/dL (3.4-5.0); Anion Gap 5 mmol/L (6-16); Blood Urea Nitrogen 36 mg/dL (8-24); Bun/Creatinine Ratio 7.3 (12.0-20.0); CO2, Blood 33 mmol/L (21-32); Calcium, Blood 8.4 mg/dL (8.5-10.1); Chloride, Blood 99 mmol/L (98-108); Creatinine, Blood 4.91 mg/dL (0.60-1.20); Glomerular Filtration Rate 12 (60-); Glucose, Blood 92 mg/dL (70-99); Magnesium, Blood 1.9 mg/dL (1.6-2.4); Phosphorus, Blood 3.7 mg/dL (2.5-4.9); Potassium, Blood 3.9 mmol/L (3.5-5.5); Sodium, Blood 137 mmol/L (136-145)
--- NOTE | 2019-09-28 06:26 | NUR ---
SHIFT SUMMARY PATIENT ALERT AND ORIENTED. EXPERIENCING PAIN DUE TO HERNIA REPAIR SURGERY, MEDICATED PER EMAR. PATIENT ABLE TO AMBULATE INDEPENDENTLY WITH NO ISSUES. IV NO LONGER PATENT BUT PATIENT REFUSED TO HAVE NEW ONE PLACED DUE TO POSSIBLE DISCHARGE TODAY. BED IN LOWEST POSITION WITH WHEELS LOCKED. CALL LIGHT WITHIN REACH. REPORT GIVEN TO ONCOMING RN.
[2019-09-28] MEDS ORDERED: Norco 5-325 Ta1 EACH PO (15:01)
[2019-09-28] MEDS ORDERED: MIRALAX17 GM PO (15:03)
--- NOTE | 2019-09-28 16:06 | NUR ---
PT WAS DCD HOME WITH DAUGHTER. HARD RX SENT WITH PT. ALL INSTRUCTIONS AND FOLLOW UPS REVIEWED WITH PT AND DAUGHTER WHO BOTH VERBALIZE AN UNDERSTANDING. IV REMOVED WITH NO ISSUE. ALL PERSONAL BELONGINGS SENT WITH PT. PT ASSISTED TO PERSONAL CAR BY MELQUIADES. PT STABLE UPON DC.
--- NOTE | 2019-09-29 09:32 | NUR ---
09/29/19 0932 Juli Sauer VERIFICATIONS: EDIT CHART.
== END 2019-09-28 16:07 | disposition home or self-care (01) ==
LOC: ER 15:46 → MEDS 15:47 → ER 20:00 → MEDS 20:00
PROVIDERS: Internal Medicine Gastroenterology; Physician Assistant; Surgery; ADMIT Internal Medicine
PROC: 0YU50JZ Supplement Right Inguinal Region with Synthetic Substitute, Open Approach (ICD-10-PCS; principal; 2019-09-26 10:45)
DX: K40.90 Unilateral inguinal hernia, without obstruction or gangrene, not specified as recurrent (principal); I25.10 Atherosclerotic heart disease of native coronary artery without angina pectoris; N40.0 Benign prostatic hyperplasia without lower urinary tract symptoms; I12.0 Hypertensive chronic kidney disease with stage 5 chronic kidney disease or end stage renal disease; N18.6 End stage renal disease; K21.9 Gastro-esophageal reflux disease without esophagitis; K59.00 Constipation, unspecified; D63.1 Anemia in chronic kidney disease; Z85.51 Personal history of malignant neoplasm of bladder; Z99.2 Dependence on renal dialysis; Z79.02 Long term (current) use of antithrombotics/antiplatelets; Z79.899 Other long term (current) drug therapy; Z87.891 Personal history of nicotine dependence; Z79.82 Long term (current) use of aspirin; Z88.5 Allergy status to narcotic agent; Z88.1 Allergy status to other antibiotic agents; Z88.8 Allergy status to other drugs, medicaments and biological substances; Z95.1 Presence of aortocoronary bypass graft
CPT/HCPCS: 36415; 80048; 80053; 80069; 83735; 85025; 93005; 93010; 96374; 99285-25; A9270; A9270-GY; C1781; C9113; G0257; J0690; J1100; J1644; J2250; J2370; J2405; J2704; J3010; J7030

== ENCOUNTER → 2019-10-23 | Outpatient (CLI) | payer MEDICARE ==
[~2019-10-23] MED LIST changes: +MIRALAX17 GM PO; +Norco 5-325 Ta1 EACH PO; +PLAVIX75 MG PO
[2019-10-23 16:27] LABS: Source, Urine Clean Catch
[2019-10-23 17:26] LABS: Bilirubin, Urine Neg (Neg); Blood, Urine 2+ (Neg); Glucose Qualitative, Urine Neg (Neg); Ketones, Urine Neg (Neg); Leukocyte Esterase, Urine 1+ (Neg); Nitrite, Urine Neg (Neg); Protein, Urine 3+ (Neg); Specific Gravity, Urine 1.015 (1.003-1.022); Urobilinogen, Urine NORM (Normal)
[2019-10-23 17:38] LABS: Appearance, Urine Clear (Clear); Color, Urine Yellow (P-Yellow)
[2019-10-23 17:39] LABS: Bacteria Mod /hpf; Squamous Epithelial Cells Rare /hpf (Few)
== END | disposition home or self-care (01) ==
LOC: OLS 16:24 → LAB SHORT 16:24
PROVIDERS: Internal Medicine
DX: N39.0 Urinary tract infection, site not specified (principal)
CPT/HCPCS: 81001; 87077; 87086; 87186

== ENCOUNTER → 2019-12-15 | Outpatient (CLI) | payer MEDICARE ==
[~2019-12-15] MED LIST changes: +Amoxicillin500 MG PO; +Amoxicillin875 MG PO
[2019-12-15 18:58] LABS: Source, Urine Clean Catch
[2019-12-15 19:01] LABS: Bacteria Rare /hpf; Squamous Epithelial Cells Rare /hpf (Few); Transitional Epithelial Cells Rare /hpf (0-Rare); White Blood Cells, Urine Rare /hpf (0-5)
== END | disposition home or self-care (01) ==
LOC: LAB EV 18:56 → LAB SHORT 18:56
PROVIDERS: Physician Assistant
DX: N39.0 Urinary tract infection, site not specified (principal)
CPT/HCPCS: 81015; 87086

== ENCOUNTER → 2020-01-06 | Outpatient (CLI) | payer MEDICARE ==
[~2020-01-06] MED LIST changes: +FENT50TP TOP
[2020-01-06 15:14] LABS: BASOPHILS ABSOLUTE AUTO 0.05 K/mm3 (0.00-0.23); BASOPHILS PERCENT AUTO 0 % (0-2); EOSINOPHILS ABSOLUTE AUTO 0.22 K/mm3 (0.00-0.68); EOSINOPHILS PERCENT AUTO 2 % (0-6); Hematocrit 34.4 % (37.0-53.0); Hemoglobin 11.1 g/dL (13.5-17.5); IMMATURE GRAN ABSOLUTE AUTO 0.11 K/mm3 (0.00-0.10); IMMATURE GRAN PERCENT AUTO 1 % (0-1); LYMPHOCYTES ABSOLUTE AUTO 0.93 K/mm3 (0.84-5.20); LYMPHOCYTES PERCENT AUTO 8 % (21-46); MONOCYTES ABSOLUTE AUTO 1.41 K/mm3 (0.16-1.47); MONOCYTES PERCENT AUTO 12 % (4-13); Mean Corpuscular HGB Conc 32.3 g/dL (31.5-36.5); Mean Corpuscular Volume 93 fL (80-100); Mean Platelet Volume 9.4 fL (9.1-12.4); NEUTROPHILS ABSOLUTE AUTO 8.87 K/mm3 (1.96-9.15); NEUTROPHILS PERCENT AUTO 77 % (41-73); Platelet Count 333 K/mm3 (150-400); RDW Coefficient Variation 15.2 % (11.7-14.2); RDW Standard Deviation 51.1 fL (35.1-46.3); White Blood Cell Count 11.59 K/mm3 (4.00-11.30)
[2020-01-06 15:32] LABS: Alanine Aminotransfer (ALT/SGP 18 U/L (12-78); Albumin, Blood 2.6 g/dL (3.4-5.0); Albumin/Globulin Ratio 0.5 (0.8-1.8); Alk Phos 50 U/L (40-126); Anion Gap 15 mmol/L (6-16); Aspartate Aminotrans (AST/SGOT 15 U/L (12-37); Bilirubin, Total 0.3 mg/dL (0.1-1.0); Blood Urea Nitrogen 82 mg/dL (8-24); CO2, Blood 25 mmol/L (21-32); Calcium, Blood 9.4 mg/dL (8.5-10.1); Chloride, Blood 95 mmol/L (98-108); Globulin, Blood 4.9 g/dL (2.2-4.0); Glucose, Blood 153 mg/dL (70-99); Potassium, Blood 3.9 mmol/L (3.5-5.5); Sodium, Blood 135 mmol/L (136-145); Total Protein, Blood 7.5 g/dL (6.4-8.2)
[2020-01-06 15:33] LABS: Bun/Creatinine Ratio 9.4 (12.0-20.0); Glomerular Filtration Rate 6 (60-); Troponin I <0.017 ng/mL (0.000-0.040)
[2020-01-06 15:34] LABS: Creatinine, Blood 8.74 mg/dL (0.60-1.20)
[2020-01-06 16:35] LABS: Source, Urine Voided
[2020-01-06 16:46] LABS: Bacteria Not Seen /hpf; Squamous Epithelial Cells Rare /hpf (Few); White Blood Cells, Urine Not Seen /hpf (0-5)
== END | disposition home or self-care (01) ==
LOC: LAB SHORT 15:10 → LAB EV 15:10
PROVIDERS: Physician Assistant
DX: I50.9 Heart failure, unspecified (principal); R53.83 Other fatigue; R31.9 Hematuria, unspecified
CPT/HCPCS: 80053; 81015; 83880; 84443; 84484; 85025; 87086

== ENCOUNTER 2020-01-10 22:01 | Inpatient (IN) | payer MEDICARE, OTHER ==
[~2020-01-10] VITALS: Ht 172.7 cm; Wt 72.6 kg
[~2020-01-10 22:01] MED LIST changes: -FENT50TP TOP
[2020-01-11 01:59] LABS: BASOPHILS ABSOLUTE AUTO 0.07 K/mm3 (0.00-0.23); BASOPHILS PERCENT AUTO 1 % (0-2); EOSINOPHILS ABSOLUTE AUTO 0.32 K/mm3 (0.00-0.68); EOSINOPHILS PERCENT AUTO 2 % (0-6); Hematocrit 30.2 % (37.0-53.0); Hemoglobin 9.4 g/dL (13.5-17.5); IMMATURE GRAN PERCENT AUTO 1 % (0-1); LYMPHOCYTES ABSOLUTE AUTO 1.48 K/mm3 (0.84-5.20); LYMPHOCYTES PERCENT AUTO 11 % (21-46); MONOCYTES ABSOLUTE AUTO 2.07 K/mm3 (0.16-1.47); MONOCYTES PERCENT AUTO 16 % (4-13); Mean Corpuscular HGB 29.7 pg (26.0-34.0); Mean Corpuscular HGB Conc 31.1 g/dL (31.5-36.5); Mean Corpuscular Volume 95 fL (80-100); Mean Platelet Volume 9.3 fL (9.1-12.4); NEUTROPHILS ABSOLUTE AUTO 9.21 K/mm3 (1.96-9.15); NEUTROPHILS PERCENT AUTO 70 % (41-73); Platelet Count 354 K/mm3 (150-400); RDW Standard Deviation 52.1 fL (35.1-46.3); Red Blood Cell Count 3.17 M/mm3 (4.30-5.90); White Blood Cell Count 13.25 K/mm3 (4.00-11.30)
[2020-01-11 02:19] LABS: Albumin, Blood 2.2 g/dL (3.4-5.0); Albumin/Globulin Ratio 0.6 (0.8-1.8); Bilirubin, Total 0.2 mg/dL (0.1-1.0); Bun/Creatinine Ratio 10.8 (12.0-20.0); Calcium, Blood 8.6 mg/dL (8.5-10.1); Globulin, Blood 3.8 g/dL (2.2-4.0); Potassium, Blood 4.7 mmol/L (3.5-5.5)
--- NOTE | 2020-01-11 04:14 | NUR ---
Patient extremely painful almost immediately after receiving IV fentanyl for his severe back pain. requesting med he received in ER. Call placed to MD, ordered received. Will medicate patient with dilaudid per order.
--- NOTE | 2020-01-11 05:44 | NUR ---
MARINE TECHNICIAN SUMMARY Patient exquisitly painful in neck upper back and shoulders. new order for dilaudid instead of fentanyl given around 0430 with good result. Patient indicated that he is pretty sure the intractable pain in back and shoulders is cancer metastasis. "My kids are starting to hover in my direction" Patient straight cathed for 150 ml of clear yellow urine at bedside. A&OX4, had PET scan scheduled for the to verify status of Cancer
[2020-01-11 14:14] LABS: BASOPHILS ABSOLUTE AUTO 0.06 K/mm3 (0.00-0.23); BASOPHILS PERCENT AUTO 1 % (0-2); EOSINOPHILS ABSOLUTE AUTO 0.39 K/mm3 (0.00-0.68); EOSINOPHILS PERCENT AUTO 3 % (0-6); Hematocrit 30.7 % (37.0-53.0); Hemoglobin 9.5 g/dL (13.5-17.5); IMMATURE GRAN ABSOLUTE AUTO 0.06 K/mm3 (0.00-0.10); IMMATURE GRAN PERCENT AUTO 1 % (0-1); LYMPHOCYTES ABSOLUTE AUTO 1.09 K/mm3 (0.84-5.20); LYMPHOCYTES PERCENT AUTO 9 % (21-46); MONOCYTES ABSOLUTE AUTO 1.77 K/mm3 (0.16-1.47); MONOCYTES PERCENT AUTO 15 % (4-13); Mean Corpuscular HGB 29.5 pg (26.0-34.0); Mean Corpuscular HGB Conc 30.9 g/dL (31.5-36.5); Mean Corpuscular Volume 95 fL (80-100); Mean Platelet Volume 9.1 fL (9.1-12.4); NEUTROPHILS ABSOLUTE AUTO 8.23 K/mm3 (1.96-9.15); NEUTROPHILS PERCENT AUTO 71 % (41-73); Platelet Count 343 K/mm3 (150-400); RDW Coefficient Variation 15.1 % (11.7-14.2); RDW Standard Deviation 52.3 fL (35.1-46.3); Red Blood Cell Count 3.22 M/mm3 (4.30-5.90)
[2020-01-11 14:42] LABS: Albumin, Blood 2.2 g/dL (3.4-5.0); Albumin/Globulin Ratio 0.6 (0.8-1.8); Bilirubin, Total 0.4 mg/dL (0.1-1.0); Bun/Creatinine Ratio 11.2 (12.0-20.0); Globulin, Blood 3.9 g/dL (2.2-4.0); Potassium, Blood 4.7 mmol/L (3.5-5.5); Total Protein, Blood 6.1 g/dL (6.4-8.2)
--- NOTE | 2020-01-11 19:27 | NUR ---
01/11/201929 TO RADIOLOGY VIA STRETCHER WITH TECH.
--- NOTE | 2020-01-11 19:31 | NUR ---
SHIFT SUMMARY: NO ACUTE CHANGES TO REPORT THIS SHIFT. PT A&O; CALM AND COOPERATIVE WITH CARE. MEDICATED FOR BACK/NECK/SHOULDER PAIN PER EMAR. PT HX BLADDER CA; PT SELF-CATHS AT BEDSIDE/IN BATHROOM. DIALYSIS PT; PERITONEAL DIALYSIS SCHEDULED FOR 01/10 IN PM. REPORT GIVEN TO ONCOMING RN.
--- NOTE | 2020-01-11 20:28 | NUR ---
DIALYSIS-PD DISCUSSED PT'S RX FOR TX. WHEN I CAME BACK WITH THE MACHINE WAS IN THE ELEVATOR HEADED FOR X-RAY. WHEN HE CAME BACK I CONNECTED HIM TO THE TX. 9000ML WITH 6 CYCLES AT 1500ML WITH 0 LAST FILL. 1 HR AND 12 MIN DWELLS. TOTAL 9 HR AND 10 MIN TX. USING 2.5% DEXTROSE BAGS. EXPLAINED TO RN ABOUT ALARMS AND GAVE HER MY CELL NUMBER. PT HAVING ALOT OF BACK PAIN AND NECK.
--- NOTE | 2020-01-11 21:32 | NUR ---
01/11/202024 JAVA GRAILS DEVELOPER STARTED HIM ON HIS PERITONEAL DIALYSIS NOW.
--- NOTE | 2020-01-12 07:22 | NUR ---
01/12/20 0600 PT HAS BEEN AWAKE ON AND OFF DUE TO SEVERE BACK,NECK PAIN. VITALS STABLE. PERITONEAL DIALYSIS MAINTAINED SINCE 2024. PT STILL WILL ST. CATH SMALL AMOUNTS OF URINE. SEE MAR FOR PAIN MEDS GIVEN THIS SHIFT.
--- NOTE | 2020-01-12 08:04 | NUR ---
DIALYSIS - PD 0745 DCED TX PER PROTOCAL. PT SAID IT WAS A VERY GOOD TX. "BETTTER THAN MY MACHINE AT HOME". PT BROUGHT ABOUT UP THE POSSIBILITY HE MAY HAVE CANCER IN HIS SPINE. SAID HE DIDN'T BELIEVE IT. THAT HE HAS A VERY GOOD CANCER DOCTOR. P LET HIM TALK BUT DIDN'T COMMENT ON IT. PT PLANS TO SHOWER TODAY, SO I LEFT HIM SPECIAL BANDAIDS FOR HIS SITE. SITE CLEAR. ID [id number] UF [id number] TIME 1:09. PT HAPPY WITH RESULTS.
--- NOTE | 2020-01-12 19:40 | NUR ---
SHIFT SUMMARY: NO ACUTE CHANGES TO REPORT THIS SHIFT. PT A&O; CALM AND COOPERATIVE WITH CARE. MEDICATED FOR CHRONIC BACK PAIN PER EMAR. FENTANYL TOP IN PLACE TO L SCAPULA. PERITONEAL DIALYSIS QD @ HS. REPORT GIVEN TO ONCOMING RN.
--- NOTE | 2020-01-12 20:17 | NUR ---
DIALYSIS-PD PT HAS BEEN VOMITING. WORRIED HIS PAIN CONTROL WON'T CONTINUE ONCE HE IS HOME OFF OF IV MEDS. CONNECTED TO TX PER PROTOCAL. CHANGED DRESSING, SITE CLEAR. 9000ML (6 L 1.5% DEXTROSE, 6L 2.5% DEXTROSE). 1500ML DWELL, 6 EXCHANGES, 1:12 DWELL TIME. 0 LAST FILL. 9 HOURS AND 10 MIN.
--- NOTE | 2020-01-13 06:52 | NUR ---
01/13/20 0640 MEDICATED AGAIN FOR BACK AND NECK PAIN PER OCT. SLIGHT TEMP THIS AM BUT OTHERWISE VITALS ARE STABLE. PERITONEAL DIALYSIS MAINTAINED SINCE 8 PM. PT SELF CATHED TWICE LAST NIGHT WITH SMALL OUTPUTS. ABDOMEN SOFT. SLEPT ON AND OFF DUE TO PAIN.
[2020-01-13 07:19] LABS: BASOPHILS ABSOLUTE AUTO 0.08 K/mm3 (0.00-0.23); BASOPHILS PERCENT AUTO 1 % (0-2); EOSINOPHILS ABSOLUTE AUTO 0.27 K/mm3 (0.00-0.68); EOSINOPHILS PERCENT AUTO 2 % (0-6); Hematocrit 31.6 % (37.0-53.0); Hemoglobin 9.7 g/dL (13.5-17.5); IMMATURE GRAN PERCENT AUTO 1 % (0-1); LYMPHOCYTES ABSOLUTE AUTO 1.21 K/mm3 (0.84-5.20); LYMPHOCYTES PERCENT AUTO 10 % (21-46); MONOCYTES PERCENT AUTO 19 % (4-13); Mean Corpuscular HGB 29.4 pg (26.0-34.0); Mean Corpuscular HGB Conc 30.7 g/dL (31.5-36.5); Mean Corpuscular Volume 96 fL (80-100); Mean Platelet Volume 9.1 fL (9.1-12.4); NEUTROPHILS ABSOLUTE AUTO 8.52 K/mm3 (1.96-9.15); NEUTROPHILS PERCENT AUTO 68 % (41-73); Platelet Count 321 K/mm3 (150-400); RDW Coefficient Variation 14.8 % (11.7-14.2); RDW Standard Deviation 51.6 fL (35.1-46.3); White Blood Cell Count 12.58 K/mm3 (4.00-11.30)
[2020-01-13 07:37] LABS: Albumin, Blood 2.1 g/dL (3.4-5.0); Albumin/Globulin Ratio 0.5 (0.8-1.8); Bilirubin, Total 0.3 mg/dL (0.1-1.0); Bun/Creatinine Ratio 9.7 (12.0-20.0); Calcium, Blood 9.2 mg/dL (8.5-10.1); Creatinine, Blood 7.84 mg/dL (0.60-1.20); Globulin, Blood 4.3 g/dL (2.2-4.0); Potassium, Blood 4.5 mmol/L (3.5-5.5); Total Protein, Blood 6.4 g/dL (6.4-8.2)
--- NOTE | 2020-01-13 08:46 | NUR ---
DIALYSIS- PD 0745 DCED TX PER PROTOCOL. PT STATED THAT HE DID NOT GET MUCH SLEEP. PT HAD ALREADY DISCONECTED HIMSELF. pT PLANS TO SHOWER TODAY. dRESSING WAS LEFT ON HIS NIGHT STAND FOR DRESSING CHANGE. PATIENS TIRE WS CLEAN AND FLUID WAS CLEAR. ID [id number] ML. [place]F [place] [id number]. TIME 1:09. PT THINKS HE MAY BE DISCHARGED TODAY. HE IS IN GOOD SPIRITS AND ANXIOUS TO GO HOME.
[2020-01-13] MEDS ORDERED: FENT50TP TOP (10:18)
[2020-01-13] MEDS ORDERED: Norco 5-325 Ta1 EACH PO (10:19)
--- NOTE | 2020-01-13 12:57 | NUR ---
PATIENT D/C'D TO HOME. HARD SCRIPT FOR FENTANYL PATCH AND HYDROCODONE GIVEN TO PATIENT. DC INSTRUCTIONS AND EDUCATION DISCUSSED WITH PATIENT AND COPY PROVIDED. PATIENT DENIES ANY FURTHER QUESTIONS OR CONCERNS. HOME HEALTH TO CONTACT PATIENT.
== END 2020-01-13 12:55 | disposition home health service (06) | DRG 551 ==
LOC: ER 22:01 → MEDS 23:27 → ER 01-11 01:32 → MEDS 01-11 01:37
PROVIDERS: Emergency Medicine; Internal Medicine Gastroenterology; ADMIT Internal Medicine
PROC: 5A1D80Z Performance of Urinary Filtration, Prolonged Intermittent, 6-18 hours Per Day (ICD-10-PCS; principal; 2020-01-11)
DX: M54.9 Dorsalgia, unspecified (principal); N18.6 End stage renal disease; I12.0 Hypertensive chronic kidney disease with stage 5 chronic kidney disease or end stage renal disease; G89.29 Other chronic pain; Z99.2 Dependence on renal dialysis; M06.9 Rheumatoid arthritis, unspecified; I25.10 Atherosclerotic heart disease of native coronary artery without angina pectoris; Z79.01 Long term (current) use of anticoagulants; Z79.82 Long term (current) use of aspirin; Z95.1 Presence of aortocoronary bypass graft; R91.8 Other nonspecific abnormal finding of lung field; Z79.891 Long term (current) use of opiate analgesic; C67.9 Malignant neoplasm of bladder, unspecified; M95.5 Acquired deformity of pelvis; M48.54XD Collapsed vertebra, not elsewhere classified, thoracic region, subsequent encounter for fracture with routine healing
CPT/HCPCS: 36415; 71046; 72050; 80053; 85025; 96374; 96375; 97110; 97162; 97166; 97530; 97535; 99285; A9270-GY; C9113; J0881; J1170; J1644; J2405; J3010; J3360; J7030

== ENCOUNTER 2020-01-16 11:34 | Observation (INO) | payer MEDICARE, OTHER ==
[~2020-01-16] VITALS: Ht 172.7 cm; Wt 66.8 kg
[~2020-01-16 11:34] MED LIST changes: -DIALYVITE 800-1 EAC1 PO; +DIALYVITE PO; +FENT50TP TOP
[2020-01-16 12:21] LABS: BASOPHILS ABSOLUTE AUTO 0.06 K/mm3 (0.00-0.23); BASOPHILS PERCENT AUTO 0 % (0-2); EOSINOPHILS ABSOLUTE AUTO 0.18 K/mm3 (0.00-0.68); EOSINOPHILS PERCENT AUTO 1 % (0-6); Hematocrit 30.6 % (37.0-53.0); Hemoglobin 9.6 g/dL (13.5-17.5); IMMATURE GRAN ABSOLUTE AUTO 0.09 K/mm3 (0.00-0.10); IMMATURE GRAN PERCENT AUTO 1 % (0-1); LYMPHOCYTES ABSOLUTE AUTO 0.77 K/mm3 (0.84-5.20); LYMPHOCYTES PERCENT AUTO 5 % (21-46); MONOCYTES ABSOLUTE AUTO 2.24 K/mm3 (0.16-1.47); MONOCYTES PERCENT AUTO 14 % (4-13); Mean Corpuscular HGB 29.8 pg (26.0-34.0); Mean Corpuscular HGB Conc 31.4 g/dL (31.5-36.5); Mean Corpuscular Volume 95 fL (80-100); Mean Platelet Volume 9.5 fL (9.1-12.4); NEUTROPHILS PERCENT AUTO 79 % (41-73); Platelet Count 379 K/mm3 (150-400); RDW Coefficient Variation 14.9 % (11.7-14.2); RDW Standard Deviation 51.8 fL (35.1-46.3); Red Blood Cell Count 3.22 M/mm3 (4.30-5.90); White Blood Cell Count 15.84 K/mm3 (4.00-11.30)
[2020-01-16 13:03] LABS: Albumin/Globulin Ratio 0.4 (0.8-1.8); Bilirubin, Total 0.5 mg/dL (0.1-1.0); Bun/Creatinine Ratio 9.6 (12.0-20.0); Calcium, Blood 9.8 mg/dL (8.5-10.1); Creatinine, Blood 9.15 mg/dL (0.60-1.20); Globulin, Blood 4.8 g/dL (2.2-4.0); Potassium, Blood 4.4 mmol/L (3.5-5.5); Total Protein, Blood 6.8 g/dL (6.4-8.2)
[2020-01-16 14:29] LABS: Source, Urine Clean Catch
[2020-01-16 14:34] LABS: Bilirubin, Urine Neg (Neg); Blood, Urine 3+ (Neg); Glucose Qualitative, Urine Neg (Neg); Ketones, Urine Neg (Neg); Leukocyte Esterase, Urine 1+ (Neg); Nitrite, Urine Neg (Neg); Protein, Urine 2+ (Neg); Specific Gravity, Urine 1.015 (1.003-1.022); Urobilinogen, Urine NORM (Normal)
[2020-01-16 14:41] LABS: Appearance, Urine Hazy (Clear); Color, Urine Yellow (P-Yellow)
[2020-01-16 14:42] LABS: Bacteria Few /hpf; Squamous Epithelial Cells Few /hpf (Few)
--- NOTE | 2020-01-16 16:51 | NUR ---
DIALYSIS-PD CALLED IN TO DRAW A SAMPLE FLUID FOR CULTURE FOR THE ER. THEY SAID PT WAS GOING TO BE ADMITTED. THERE IS A CONSULT FOR DR MARAVILLA, SO I CALLED AND SHE ADDED A CELL CT AND GRAM STAIN TO THE ORDER FOR THE SAMPLE. FLUID TAKEN PER PROTOCAL. THE SOLUTION WAS VERY CLEAR. HAND CARRIED TO THE LAB.
[2020-01-16 17:16] LABS: Automated BF WBC Count 0.026 K/mm3 (0-999); Body Fluid WBC Count 26 /mm3 (0-999)
[2020-01-16] MEDS ORDERED: SUCR1 PO (17:32)
[2020-01-16 17:48] LABS: RBC Count, Body Fluid 0 /mm3 (0-0)
[2020-01-16 17:53] LABS: Color, Body Fluid No color (None-Yellow)
[2020-01-16 17:54] LABS: Appearance, Body Fluid Clear (Clear)
[2020-01-16 18:15] LABS: Total Cell Count, Body Fluid 75
--- NOTE | 2020-01-16 18:51 | NUR ---
DIALYSIS-PD CONNECTED PT TO PD PER PROTOCAL. PT FALLS ASLEEP, THEN WAKES. SOMEWHAT CONFUSED BUT CAN BE REFOCOUSED. HE FORGETS EASILY. 9000 ML, 9 HOURS, 1:12 DWELL TIME, 1500ML DWELL FLUID. 6 EXCHANGES 0 LAST FILL. CONNECTED AT 1830. FLUID CLEAR.
--- NOTE | 2020-01-16 19:17 | NUR ---
SHIFT SUMMARY. 1647 PT ADMITTED TO MEDICAL FLOOR VIA GURNEY, PT SLIDE TRANSFERED TO BED WITH FOUR STAFF. PT REPORTS PAIN TO BILATERAL WRIST SECONDARY TO RA, REPORTS BACK PAIN, PAIN INCREASES WITH MOVEMENT. PT DENIES N/V, SOB. CLEAR LIQUID DIET ORDER PT IS BECOMING MORE ALERT. NO OTHER CHANGES OR CONCERNS.
--- NOTE | 2020-01-17 02:28 | NUR ---
PHYSICIAN COMMUNICATION CALLED HOT PRESS OPERATOR PHYSICIAN, DR LUCAS, TO INFORM HIM THAT THE PATIENT WAS HAVING 8/10 PAIN FOR WHICH HIS TYLENOL WAS INEFFECTIVE. ALSO INFORMED HIM THAT THE PATIENT WAS GETTING NIGHTLY PERITONEAL DIALYSIS. DR LUCAS ORDERED OXYCODONE 5-10 MG PO Q6 HRS NEEDED FOR PAIN.
[2020-01-17 04:27] LABS: BASOPHILS ABSOLUTE AUTO 0.07 K/mm3 (0.00-0.23); BASOPHILS PERCENT AUTO 1 % (0-2); EOSINOPHILS ABSOLUTE AUTO 0.23 K/mm3 (0.00-0.68); EOSINOPHILS PERCENT AUTO 2 % (0-6); Hematocrit 30.3 % (37.0-53.0); Hemoglobin 9.5 g/dL (13.5-17.5); IMMATURE GRAN ABSOLUTE AUTO 0.07 K/mm3 (0.00-0.10); IMMATURE GRAN PERCENT AUTO 1 % (0-1); LYMPHOCYTES ABSOLUTE AUTO 1.16 K/mm3 (0.84-5.20); LYMPHOCYTES PERCENT AUTO 9 % (21-46); MONOCYTES ABSOLUTE AUTO 1.97 K/mm3 (0.16-1.47); MONOCYTES PERCENT AUTO 16 % (4-13); Mean Corpuscular HGB 29.5 pg (26.0-34.0); Mean Corpuscular HGB Conc 31.4 g/dL (31.5-36.5); Mean Corpuscular Volume 94 fL (80-100); NEUTROPHILS ABSOLUTE AUTO 9.12 K/mm3 (1.96-9.15); NEUTROPHILS PERCENT AUTO 72 % (41-73); RDW Standard Deviation 51.3 fL (35.1-46.3); Red Blood Cell Count 3.22 M/mm3 (4.30-5.90); White Blood Cell Count 12.62 K/mm3 (4.00-11.30)
[2020-01-17 04:31] LABS: Mean Platelet Volume 9.6 fL (9.1-12.4); Platelet Count 317 K/mm3 (150-400)
[2020-01-17 04:43] LABS: Magnesium, Blood 2.1 mg/dL (1.6-2.4)
[2020-01-17 05:47] LABS: Albumin, Blood 1.9 g/dL (3.4-5.0); Anion Gap 16 mmol/L (6-16); Blood Urea Nitrogen 79 mg/dL (8-24); CO2, Blood 22 mmol/L (21-32); Calcium, Blood 9.1 mg/dL (8.5-10.1); Chloride, Blood 97 mmol/L (98-108); Glucose, Blood 108 mg/dL (70-99); Phosphorus, Blood 7.4 mg/dL (2.5-4.9); Potassium, Blood 4.2 mmol/L (3.5-5.5); Sodium, Blood 135 mmol/L (136-145); Vancomycin, Random 12.2 ug/mL
[2020-01-17 05:56] LABS: Bun/Creatinine Ratio 9.4 (12.0-20.0); Creatinine, Blood 8.36 mg/dL (0.60-1.20); Glomerular Filtration Rate 7 (60-)
--- NOTE | 2020-01-17 07:12 | NUR ---
SHIFT SUMMARY PATIENT BECAME INCREASINGLY ALERT AND ORIENTED THE NIGHT PROGRESSED. MEDICATED PER EMAR FOR PAIN. TAKING MEDS WHOLE WITH WATER WITH NO DIFFICULTY. IV PATENT AND INFUSING WITH NORMAL SALINE AT 50 ML/HR. BED IN LOWEST POSITION WITH WHEELS LOCKED AND ALARM ON. CALL LIGHT WITHIN REACH. REPORT GIVEN TO ONCOMING RN.
--- NOTE | 2020-01-17 09:07 | NUR ---
DIALYSIS-PD WHEN THE PT CAME INTO THE ER YESTERDAY, THE FAMILY SAID THAT THE PD MACHINE ACTING UP (ALARMING). THEY SAID THEY JUST STOPPED THE PROCESS AND CAPPED HIM OFF. THEY WEREN'T SURE WHERE THE PROCESS WAS AT. USUALLY THE PT LAST FILL IS 0 ML. THAT IS THE REASON THE PT'S ID WAS [id number] ML. THE UF WAS 343 ML. NOW WE WILL GO BACK TO THE PT'S NORMAL PROGRAM WHICH IS 1 X 6L 1.5 % DEXTROSE AND 1 X 6L 2.5 %. ALTERNATING WITH 2 - 6 L 2.5% DEXTROSE THE NEXT NIGHT. THIS SEEMS TO WORK REALLY WELL WITH HIM. SITE CLEAR. BANDAGE CHANGED PER PROTOCAL, SOLUTION CLEAR. PT MORE AWARE TODAY, LESS SLEEPY.
--- NOTE | 2020-01-17 17:39 | NUR ---
SHIFT SUMMARY. A&OX4, AWARE OF LIMITATIONS, PLEASANT AND COOPERATIVE WITH CARE. PT IS ONE ASSIST WITH FWW TO CHAIR/BSC. PT REPORTS FEELING WEAK, PT ENCOURAGED TO SIT IN CHAIR FOR ALL MEALS. PT REPORTED PAIN TO BACK AND BUE THIS AM, MEDICATED PER ORDERS ONCE, PT REPORTED PAIN TOLERABLE FOR THE REMAINDER OF SHIFT. PT DENIES N/V, SOB. PT STRAIGHT CATHED THIS AM HE NORMALY SELF CATHS AT HOME. PT REPORTED HE WAS TOO WEAK AND DID NOT HAVE GLASSES AND WOULD NOT BE ABLE TO SELF CATH. DR. MARAVILLA IN TO SEE PT THIS AFTERNOON. NO NEW CHANGES OR CONCERNS.
--- NOTE | 2020-01-17 19:41 | NUR ---
DIALYSIS-PD PT BEING TRANSFERRED TO ROOM 313. TOOK HIS MACHINE AND SET IT UP IN THE ROOM. 2 X 2.5% DEXTROSE 6 L BAGS. 6 EXCHANGES, 1:12 DWELL TIME, 9 HOUR 10 MIN TX. 1500 ML FILLS WITH 0 LAST FILL. PT MUCH ALERT THAN YESTERDAY AND EVEN IMPROVED FROM THIS AM. PT'S BACK, SHOULDERS, AND WRIST STILL REALLY HURT. TX STARTED AT 1910. RN HAD NEVER HAD A PD PT. WENT THROUGH THE PROCEDURE OF CALLING ME AND GAVE MY NUMBER. SHOWED SOME FIXES ON THE BASIC ALARMS.
--- NOTE | 2020-01-17 22:52 | NUR ---
PATIENT RECEIVING PERITONEAL DIALYSIS SET UP BY YOKO FULL ROLL INSPECTOR. YOKO GONE FOR EVENING AND REPORTS NINE HOUR RUN TIME. DWELL 3 OF 6 AT THIS TIME. PATIENT VERY ANXIOUS. NAUSEOUS AND RECEIVED PO ZOFRAN X ONE. PATIENT TO BSC AND BACK IN BED REPORTED COLD AND WARM BLANKET PROVIDED. WATCHING TV; CALL LIGHT IN REACH.
--- NOTE | 2020-01-18 01:03 | NUR ---
PERITONEAL DIALYSIS IN PROGRESS: DWELL 4 OF 6. N/V RESOLVED WITH PO ZOFRAN. PATIENT RESTING WITH TV ON. NORCO ONE TAB GIVEN FOR BACK PAIN. CALL LIGHT IN REACH.
--- NOTE | 2020-01-18 03:40 | NUR ---
SHIFT SUMMARY PATIENT HAD NO ACUTE CHANGES OBSERVED. AXOX 3 AND ONE ASSIST TO BSC W/GAIT BELT STAND PIVOT. SELF STRAIGHT CATH X ONE. PERITONEAL DIALYSIS TOLERATING WELL. REPORTED BACK PAIN AND NORCO GIVEN PER EMAR. NAUSEOUS X ONE AND PO ZOFRAN GIVEN. VSS/AFEBRILE. COOPERATIVE WITH CARE. PATIENT ANXIOUS AT START OF SHIFT AND LESS ANXIETY T/O SHIFT. CALL LIGHT IN REACH. BED IN LOWEST POSITION. WILL CONTINUE TO MONITOR UNTIL DAY SHIFT NURSE ASSUMES CARE.
--- NOTE | 2020-01-18 04:55 | NUR ---
PERITONEAL DIALYSIS COMPLETE. PATIENT WATCHING TV. TOLERATED WELL. CALL LIGHT IN REACH.
[2020-01-18 05:36] LABS: BASOPHILS ABSOLUTE AUTO 0.06 K/mm3 (0.00-0.23); BASOPHILS PERCENT AUTO 1 % (0-2); EOSINOPHILS ABSOLUTE AUTO 0.24 K/mm3 (0.00-0.68); EOSINOPHILS PERCENT AUTO 2 % (0-6); Hematocrit 29.3 % (37.0-53.0); Hemoglobin 9.2 g/dL (13.5-17.5); IMMATURE GRAN ABSOLUTE AUTO 0.07 K/mm3 (0.00-0.10); IMMATURE GRAN PERCENT AUTO 1 % (0-1); LYMPHOCYTES ABSOLUTE AUTO 0.88 K/mm3 (0.84-5.20); LYMPHOCYTES PERCENT AUTO 8 % (21-46); MONOCYTES ABSOLUTE AUTO 1.71 K/mm3 (0.16-1.47); MONOCYTES PERCENT AUTO 15 % (4-13); Mean Corpuscular HGB 29.7 pg (26.0-34.0); Mean Corpuscular HGB Conc 31.4 g/dL (31.5-36.5); Mean Corpuscular Volume 95 fL (80-100); Mean Platelet Volume 9.7 fL (9.1-12.4); NEUTROPHILS ABSOLUTE AUTO 8.45 K/mm3 (1.96-9.15); NEUTROPHILS PERCENT AUTO 74 % (41-73); Platelet Count 391 K/mm3 (150-400); RDW Coefficient Variation 14.9 % (11.7-14.2); RDW Standard Deviation 51.3 fL (35.1-46.3); White Blood Cell Count 11.41 K/mm3 (4.00-11.30)
[2020-01-18 05:41] LABS: Albumin, Blood 1.8 g/dL (3.4-5.0); Anion Gap 15 mmol/L (6-16); Blood Urea Nitrogen 73 mg/dL (8-24); Bun/Creatinine Ratio 9.8 (12.0-20.0); CO2, Blood 24 mmol/L (21-32); Chloride, Blood 95 mmol/L (98-108); Creatinine, Blood 7.46 mg/dL (0.60-1.20); Glomerular Filtration Rate 7 (60-); Glucose, Blood 158 mg/dL (70-99); Phosphorus, Blood 6.3 mg/dL (2.5-4.9); Potassium, Blood 3.8 mmol/L (3.5-5.5); Sodium, Blood 134 mmol/L (136-145)
--- NOTE | 2020-01-18 07:31 | NUR ---
PATIENT AWAKE/ ALERT/ ORIENTED THIS AM. LAYING IN BED WATCHING TV. C/O SOME NAUSEA DURING THE NIGHT BUT MOSTLY RESOLVED AT THIS TIME. OVERNIGHT CCPD COMPLETE. PATIENT AESEPTICALLY DISCONNECTED AND NEW MINI-CAP PLACED ON CATHETER. CATHETER SECURED IN PT'S PD BELT. CYCLER STRIPPED AND CLEANED.
--- NOTE | 2020-01-18 14:52 | NUR ---
Pain Patient c/o pain after completing bone scan. Dr. Grande informed. MD will put in orders.
--- NOTE | 2020-01-18 18:13 | NUR ---
PATIENT AWAKE/ ALERT UPON ENTERING ROOM. DINNER TRAY IN FRONT OF PATIENT BUT ONLY SMALL PORTION CONSUMED. PT REPORTS NO APPETITE. UNABLE TO EVEN FORCE FOOD DOWN. PT ENCOURAGED TO WORK ON NEPRO DRINK AT LEAST AND HE AGREED TO DO THAT. CYCLER STRUNG, PROGRAMMED AND PRIMED. WHEN CYCLER DONE WITH PRIME, PT AESEPTICALLY CONNECTED AND OVERNIGHT THERAPY STARTED. EXIT SITE CARE DONE. NEW STERILE DRESSING APPLIED. SITE CLEAR, DRY, TIGHT AND NON-TENDER. THERAPY MONITORED THROUGH INITIAL DRAIN AND START OF FILL #1. NO REPORT OF DISCOMFORT OR NAUSEA.
--- NOTE | 2020-01-18 18:21 | NUR ---
Shift Summary A/Ox3, pleasant and cooperative. Calls appropriately for needs. Medicated x 3 for pain, especially after scan today, mild relief only. Patient self-cathed twice. C/o increasing weakness. PT/OT worked with patient today. Appetite has been poor. Dangles on side of bed for meals as needed. This RN has been in touch with daughter Asael) @ [phone] and providing updates. No other changes. Will continue to monitor.
--- NOTE | 2020-01-18 23:38 | NUR ---
01/18/20 2340 MEDICATED FOR PAIN PER MAR. ENCOURAGED TO TURN ON SIDE BUT DECLINED, STATES HE CANNOT SLEEP ON SIDE. STATES HE IS COMFORTABLE NOW.
--- NOTE | 2020-01-19 06:47 | NUR ---
PATIENT LAYING IN BED. AWAKE/ALERT BUT APPEARS WEAK. OVERNIGHT CCPD COMPLETE. PATIENT AESEPTICALLY DISCONNECTED AND CATHETER CAPPED WITH NEW MINI-CAP AND SECURED IN PT'S PD BELT FOR THE DAY. CYCLER STRIPPED AND CLEANED.
--- NOTE | 2020-01-19 07:49 | NUR ---
01/20/20 0600 AWAKENED FOR AM MEDS. ALSO WAS GIVEN PAIN MED FOR BACK,SHOULDER AND ARMS PAIN. PERITONEAL DIALYSIS COMPLETED WITH TUBES TURNED OFF. FINANCIAL SERVICES CONSULTANT TO COME TO DISCONNECT PT. VIALS STABLE. POOR ORAL INTAKE AND WOULD ONLY TAKE SIPS AT A TIME. ENCOURAGED HIM OFF BUTTOCKS BUT DECLINED SEVERAL TIMES TO LAY ON SIDE.
--- NOTE | 2020-01-19 14:01 | NUR ---
UNMANAGED PAIN L/M ON DR. JUAN'S PHONE RE PAIN BEING UNMANAGED WITH CURRENT MEDICATION REGIMEN.
[2020-01-19 15:19] LABS: BASOPHILS ABSOLUTE AUTO 0.07 K/mm3 (0.00-0.23); BASOPHILS PERCENT AUTO 1 % (0-2); EOSINOPHILS ABSOLUTE AUTO 0.32 K/mm3 (0.00-0.68); EOSINOPHILS PERCENT AUTO 3 % (0-6); Hematocrit 29.6 % (37.0-53.0); Hemoglobin 9.4 g/dL (13.5-17.5); IMMATURE GRAN ABSOLUTE AUTO 0.09 K/mm3 (0.00-0.10); IMMATURE GRAN PERCENT AUTO 1 % (0-1); LYMPHOCYTES ABSOLUTE AUTO 0.92 K/mm3 (0.84-5.20); LYMPHOCYTES PERCENT AUTO 9 % (21-46); MONOCYTES ABSOLUTE AUTO 1.55 K/mm3 (0.16-1.47); MONOCYTES PERCENT AUTO 15 % (4-13); Mean Corpuscular HGB Conc 31.8 g/dL (31.5-36.5); Mean Corpuscular Volume 95 fL (80-100); Mean Platelet Volume 9.2 fL (9.1-12.4); NEUTROPHILS ABSOLUTE AUTO 7.73 K/mm3 (1.96-9.15); NEUTROPHILS PERCENT AUTO 72 % (41-73); Platelet Count 394 K/mm3 (150-400); RDW Coefficient Variation 14.8 % (11.7-14.2); RDW Standard Deviation 51.5 fL (35.1-46.3); Red Blood Cell Count 3.13 M/mm3 (4.30-5.90); White Blood Cell Count 10.68 K/mm3 (4.00-11.30)
[2020-01-19 15:37] LABS: Bun/Creatinine Ratio 10.4 (12.0-20.0); Calcium, Blood 9.1 mg/dL (8.5-10.1); Creatinine, Blood 7.52 mg/dL (0.60-1.20); Potassium, Blood 4.2 mmol/L (3.5-5.5)
--- NOTE | 2020-01-19 15:58 | NUR ---
Initial spiritual care note: Mr. Curiel appeared confused. He could not tell me why he is hospitalized and complained of "constant pain" in his neck and shoulders. He stoped conversation several times, asking me to help him adjust in recliner. He was unsatisfied with every position. He could not tell me if he has any family or where he lives. He appeared restless and frustrated. He could not engage in meaningful conversation and declined prayer. Conferenced with Palliative care RN. I will remain available to pt and family.
--- NOTE | 2020-01-19 18:26 | NUR ---
PATIENT AWAKE, ALERT AND EATING DINNER. APPETITE IMPROVED TONIGHT. MUCH MORE INTERESTED IN EATING. CYCLER STRUNG, PROGRAMMED AND PRIMED. WHEN PRIME COMPLETE, PT AESEPTICALY CONNECTED AND OVERNIGHT CCPD STARTED. THERAPY MONITORED THROUGH ID AND FILL #1 TO ASSESS PT TOLERANCE. NO DISCOMFORT REPORTED. PT DOES REPORT JOINT PAIN, ESPECIALLY IN ELBOWS AND SHOULDER. POSITIONED FOR MAX PT COMFORT. EXIT SITE CARE DONE. CLEANSED WITH EXCEPT AND NEW STERILE DRESSING APPLIED. MED FLOOR STAFF AWARE OF CCPD THERAPY IN PROGRESS.
--- NOTE | 2020-01-19 19:18 | NUR ---
Shift Summary A/Ox3, though patient is becoming more confused today stating "The bed is moving up and down" when it was clearly not. Assisted patient with self-cath x 1 today by holding onto urinal, positioning, and setting up catheter. Medicated for 7-8/10 back/neck/hand pain x 2 per EMAR with mild relief. Updated Eliane (daughter) on discussion with Dr. Grande RE options pending bone scan results. These options are 1) Palliative radiation, 2) Biopsy with specialist, 3) Hospice if scan reveals metastasis to spine per Dr. Grande. Authorization for use/disclosure of PHI form tubed to Medical Records per patient and Eliane's request. VSS, afebrile.
--- NOTE | 2020-01-20 04:44 | NUR ---
SHIFT SUMMARY ADMITTED FOR AMS. DNR CODE. PLAN IS FOR FAMILY AND PT TO MAKE DECISIONS ON FUTURE PATH OF CARE. PT RECEIVES PERITONEAL DIALYSIS DURING PM. FISTULA IN LEFT ARM. RENAL DIET, RA, 1 ASSIST W/FWW, HEPARIN SCHEDULED FOR DVT PREVENTION, A&O X3 - SOME CONFUSION NOTED. TUMS ADDED TO EMAR THIS SHIFT. HE SELF-CATHS AT HOME AND HERE FOR RETENTION. PO AND IV PAIN MEDS BOTH REQUIRED THIS SHIFT FOR GENERALIZED PAIN. PHYSICAL & OCCUPATIONAL THERAPIES WORKING WITH PT.
--- NOTE | 2020-01-20 11:50 | NUR ---
PD PERITONEAL DIALYSIS PATIENT WAS AWAKE AND ALERT SITTING UP IN BED. HE STATED THAT HE WAS IN PAIN, MOSTLY IN HIS BACK BUT IT WAS STARTING TO HURT ACROSS HIS UPPER ABDOMEN. THE NURSE WAS IN THE ROOM GIVING HIM HIS MEDICATION AT THE TIME, HE WAS FINISHING UP HES BREAKFAST. PERITONEAL DIALYSIS WAS COMPLETE. HE WAS DISONCECTED PER PROTOCOL, DRESSING WAS CHANGED, INFORMATION COLECTED, TX PRACHI AND EQUIPMENT CLENED AND DISPOSED OF PER PROTOCOL.
[2020-01-20 15:10] LABS: BASOPHILS ABSOLUTE AUTO 0.07 K/mm3 (0.00-0.23); BASOPHILS PERCENT AUTO 1 % (0-2); EOSINOPHILS ABSOLUTE AUTO 0.23 K/mm3 (0.00-0.68); EOSINOPHILS PERCENT AUTO 2 % (0-6); Hematocrit 29.8 % (37.0-53.0); Hemoglobin 9.1 g/dL (13.5-17.5); IMMATURE GRAN ABSOLUTE AUTO 0.11 K/mm3 (0.00-0.10); IMMATURE GRAN PERCENT AUTO 1 % (0-1); LYMPHOCYTES ABSOLUTE AUTO 1.15 K/mm3 (0.84-5.20); LYMPHOCYTES PERCENT AUTO 11 % (21-46); MONOCYTES ABSOLUTE AUTO 1.45 K/mm3 (0.16-1.47); MONOCYTES PERCENT AUTO 14 % (4-13); Mean Corpuscular HGB 29.2 pg (26.0-34.0); Mean Corpuscular HGB Conc 30.5 g/dL (31.5-36.5); Mean Corpuscular Volume 96 fL (80-100); Mean Platelet Volume 9.5 fL (9.1-12.4); NEUTROPHILS ABSOLUTE AUTO 7.15 K/mm3 (1.96-9.15); NEUTROPHILS PERCENT AUTO 70 % (41-73); Platelet Count 402 K/mm3 (150-400); RDW Coefficient Variation 14.5 % (11.7-14.2); RDW Standard Deviation 50.1 fL (35.1-46.3); Red Blood Cell Count 3.12 M/mm3 (4.30-5.90); White Blood Cell Count 10.16 K/mm3 (4.00-11.30)
[2020-01-20 15:26] LABS: Bun/Creatinine Ratio 10.3 (12.0-20.0); Calcium, Blood 9.1 mg/dL (8.5-10.1); Creatinine, Blood 7.1 mg/dL (0.60-1.20)
--- NOTE | 2020-01-20 16:45 | NUR ---
SHIFT SUMMARY PATIENT MEDICATED X3 FOR BACK AND JOINT PAIN THIS SHIFT WITH IV AND PO MEDICATIONS. PATIENT DENIES NAUSEA AND SHORTNESS OF BREATH. PATIENT WORKED WITH PT AND OT TODAY. GOOD PO INTAKE. PATIENT UP ONE ASSIST WITH FWW BUT TIRES VERY EASILY. DR. MARAVILLA CONSULTED WITH PATIENT TODAY, PD TO CONTINUE OVERNIGHT. DR. CARPIO CONSULTED WITH PATIENT, PLAN FOR OUTPATIONT PULMONARY WORKUP WITH POSSIBLE SURGERY OR RADIATION FOR LUNG MASS. FAMILY IS AWARE OF PLAN. CALL LIGHT IN REACH.
--- NOTE | 2020-01-20 23:20 | NUR ---
Peritoneal dialysis Patient was sitting up in bed watching TV when I entered. He stated that he was feeling much better now that he had his pain under control. He stated that he thinks he might get discharged tomorrow and that he was worried that he could not take care of himself. He stated that he wished he would be able to have the biopsy completed before being sent home so that he knew what was causing his pain and how to contol it. He thinks he may need help at home with his care because he does not feel that he is strong enough to care for himself yet, and that the pain he is in is not controled without pain medication. He stated that he "feels like the pain medication makes him drowsie, but takes the edge off".
--- NOTE | 2020-01-21 03:44 | NUR ---
CALLED HOSPITALIST PT STATES 10/10 PAIN. CALLED HOSPITALIST. ONE TIME ONLY DOSE MED ORDERED FOR SEVERE PAIN.
--- NOTE | 2020-01-21 04:28 | NUR ---
SHIFT SUMMARY ADMITTED FOR AMS (POSSIBLY DUE TO NARCOTICS). DNR CODE. DR REED IS CONSULT - SHE WILL ADDRESS FOUND LUNG MASS OUTPT. PT IS ON PERITONEAL DIALYSIS @ PM, DAILY. HE ALSO HAS A FISTULA IN LEFT ARM. HE IS ON RA, RENAL DIET, SELF CATH'S AT HOME AND HERE FOR RETENTION, 1 ASSIST W/FWW, A&O X3 DUE TO CONFUSION. PT ANXIOUS THROUGHOUT SHIFT. I DID CALL HOSPITALIST RE SEVERE PAIN THIS SHIFT AT PT'S INSISTENCE. PERTINENT HX: ESRD, MOOD DISORDER/ANXIETY, T8 & L2 FRACTURES, 2 SPINAL SURGERIES REPORTED.
--- NOTE | 2020-01-21 10:36 | NUR ---
DIALYSIS-PD WENT TO PT'S ROOM AT 0730. PD MACHINE AT 6 DWELL OF 6. SPOKE TO THE PT AND THEN LEFT. CAME BACK AT 0900, TX COMPLETED, ID 0 ML. UF [id number] ML. DC'ED TX. PT EAING BREAKFAST. STRUGGLING DUE TO PAIN IN ELBOW, WRIST AND HANDS. C/O A LOT OF PAIN. SAYS HE TROUBLE PICKING THING UP. HE SEEMED LESS CLEAR THAN WHEN I SAW HIM ON SATURDAY. A&O BUT LESS CLEAR. SITE CLEAR, FLUID CLEAR. TX GOING WELL.
--- NOTE | 2020-01-21 11:00 | NUR ---
TALKED TO YESENIA GRANDDAUGHTER
--- NOTE | 2020-01-21 11:36 | NUR ---
DISCUSSED PATIENT CONDITION W/DAUGHTER, GRACIE.
--- NOTE | 2020-01-21 13:32 | NUR ---
LEFT MESSAGE ON VOICE MAIL ASKING IF HE WAS GOING TO ORDER SOME DIFFERENT PAIN MEDS.
--- NOTE | 2020-01-21 14:18 | NUR ---
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 CANCELLED MEDS.
[2020-01-21 15:18] LABS: BASOPHILS ABSOLUTE AUTO 0.06 K/mm3 (0.00-0.23); BASOPHILS PERCENT AUTO 1 % (0-2); EOSINOPHILS ABSOLUTE AUTO 0.15 K/mm3 (0.00-0.68); EOSINOPHILS PERCENT AUTO 1 % (0-6); Hematocrit 32.4 % (37.0-53.0); Hemoglobin 10.2 g/dL (13.5-17.5); IMMATURE GRAN ABSOLUTE AUTO 0.17 K/mm3 (0.00-0.10); IMMATURE GRAN PERCENT AUTO 1 % (0-1); LYMPHOCYTES ABSOLUTE AUTO 1.19 K/mm3 (0.84-5.20); LYMPHOCYTES PERCENT AUTO 10 % (21-46); MONOCYTES ABSOLUTE AUTO 1.89 K/mm3 (0.16-1.47); MONOCYTES PERCENT AUTO 16 % (4-13); Mean Corpuscular HGB 29.7 pg (26.0-34.0); Mean Corpuscular HGB Conc 31.5 g/dL (31.5-36.5); Mean Corpuscular Volume 95 fL (80-100); Mean Platelet Volume 9.7 fL (9.1-12.4); NEUTROPHILS ABSOLUTE AUTO 8.56 K/mm3 (1.96-9.15); NEUTROPHILS PERCENT AUTO 71 % (41-73); Platelet Count 446 K/mm3 (150-400); RDW Coefficient Variation 14.4 % (11.7-14.2); RDW Standard Deviation 49.3 fL (35.1-46.3); Red Blood Cell Count 3.43 M/mm3 (4.30-5.90); White Blood Cell Count 12.02 K/mm3 (4.00-11.30)
[2020-01-21 15:36] LABS: Bun/Creatinine Ratio 9.7 (12.0-20.0); Calcium, Blood 9.4 mg/dL (8.5-10.1); Creatinine, Blood 7.46 mg/dL (0.60-1.20)
--- NOTE | 2020-01-21 16:51 | NUR ---
ALERT. ORIENTED. MEDICATED FOR PAIN WITH SOME GOOD RESULTS. REVIEW PATIENT CONDITION AND CURRENT ILLNESS W/RELATIVES. TOMORROW RELATIVES FROM OUT OF STATE WILL BE HERE AND WILL HAVE MEETING W/CARE MANAGEMENT AND PALLIATIVE CARE ABOUT COURSE OF ACTION. [employer] CAKE DECORATOR ASSISTED WITH SELF CATH. VSS. UNLABORED RESPIRATIONS. ABLE TO MAKE NEEDS KNOWN. WCTM
--- NOTE | 2020-01-21 19:07 | NUR ---
DIALYSIS-PD WENT UP TO PT'S ROOM WITH SUPPLIES TO SET UP MACHINE. PT WANTED TO USE THE BEDSIDE COMMODE AND ASKED ME TO LEAVE. TOOK A FEW MINUTES AND HE WAS DONE. SETUP MACHINE. CHANGED DRESSING. SITE CLEAR AND DRY. WHEN MACHINE WAS READY, I CONNECTED THE PT PER PROTOCAL. TALKED TO RN ABOUT ALARMS AND GAVE HER MY NUMBER.
--- NOTE | 2020-01-22 00:57 | NUR ---
CALLED WARES SORTER INFORMED HIM THAT I HAVE HELD THE IMDUR DUE TO A BP OF 100/64. IMDUR IS A VASODILATOR. WARES SORTER INFORMED ME THAT I SHOULD CONTINUE TO HOLD IT UNTIL THE PT EXPRESSES THAT HE HAS CHEST PAIN.
--- NOTE | 2020-01-22 05:28 | NUR ---
SHIFT SUMMARY ADMITTED FOR AMS. DNR CODE. PERITONEAL DIALYSIS NIGHTLY. PT SELF CATHS. FISTULA IN LEFT ARM ALSO. DR REED IS CONSULT FOR LUNG MASS - TO BE DEALT WITH OUTPT. FAMILY AND PT ARE MAKING DECISIONS ABOUT TREATMENT PLAN VS HOSPICE. PT CANNOT GO TO SNF DUE TO DIALYSIS NEEDS. IMDUR HELD THIS SHIFT, SEE PREVIOUS NOTE. PT RESTED SOUNDLY AND COMFORTABLY THROUGHOUT THE NIGHT. NO NEW CONCERNS. ON RA, A&O X3 DUE TO INTERMITTENT CONFUSION, 1 ASSIST W/FWW.
--- NOTE | 2020-01-22 08:54 | NUR ---
DIALYSIS-PD PT SEEMS ALIITLE MORE CONFUSED BUT THAT SEEMS TO BE ASSOCIATED WITH PAIN MEDS. HE C/O THAT HE IS IN CONSTANT PAIN. HIS HANDS, WRIST, ELBOW, AND BACK. DC'ED TX PER PROTOCAL. TOLD THERE WERE NO ALARMS. ID [id number] ML. UF [id number] ML. SOLUTION CLEAR. SITE CLEAR. SEEMS FIXATED ON HIS "PANIC" BUTTON. TOLD ME SEVERAL TIMES TO MAKE I DIDN'T PULL IT OUT OF THE WALL.
--- NOTE | 2020-01-22 15:07 | NUR ---
Family meeting conducted to review options of care with physician and health care social worker.Pt Physician in to review options for care and diagnostics. health care social worker reviewed cost of care and if pt to rehab would need to transition to hemodialysis. Physician also reviewed possible lobectomy if cancer and possible treatments. Pt frail and struggling through conversation due to pain and fatigue. Review with physician pt states he has not slept and he struggles with dialysis at night and alarms. pt states the seroquel is is helping felt like he got more rest last night. review with physician strategies of pain management and sleep improvement. pt relays marked decline in his ability to do his ADLS and to walk. He states the pain has greatly increased past few weeks. HIs appetite has declined. No discussion of hospice as an option at this time as pt states he wants to look at treatemnt. Will continue to moritor pain . updated dislysis team on family meeting will see that is notified. Family given paliative care contact number for future assistance. health care social worker updated Dr simpson on possible hemodialysis this afternoon. Spent some time with patient working on positioning. His neck is tight and his shoulders are sensititive to preassure, reenforced a firmer pillow with some relief. facilitated expressions of stress he was very tearfull today and talking about his . will try some diversion tomorrow and visualization.
--- NOTE | 2020-01-22 15:52 | NUR ---
ADVISED DR.CLYDE Reis 94/53 HEART RATE 91. HAS CHRONIC PAIN. MD TO CHECK CHART.
--- NOTE | 2020-01-22 18:45 | NUR ---
ALERT. ORIENTED. BETTER APPETITE TODAY. MEDS SEEM TO BE WORKING BETTER TODAY FOR PAIN. NEEDY. ABLE TO MAKE NEEDS KNOWN. WILL HAVE BIOPSY NEXT WEEK AND THEN GO FROM THERE IF NEEDS CHEMO OR RADIATION. WCTM.
--- NOTE | 2020-01-22 19:09 | NUR ---
DIALYSIS-PD PT SITTING UP ON THE BED EATING. HE IS IN A VERY GOOD MOOD, SAYS HE WANTS TO RACE AGAIN. I ASKED BIKES, CARS. TRUCKS? HE SAID CARS OR TRUCKS, HE'S TOO OLD FOR BIKES. TALKED ABOUT HIS FAMILY BEING HERE. HE ATE HIS ENTIRE TRAY, A CHANGE FROM THE LAST FEW DAYS. SAID HIS PAIN WAS BETTER. CONNECTED HIM TO PD. USED 2 GREEN (2.5% DEXTROSE) AGAIN. HIS NA+ 131. SAME PROGRAM. CHECKED HIS FISTULA AND FEELS REALLY GOOD.
--- NOTE | 2020-01-23 07:10 | NUR ---
SHIFT SUMMARY- PT. ASLEEP T/O MOST OF THE NIGHT, NO APPARENT DISTRESS NOTED. C/O GENERALIZED PAIN. MEDICATED PER EMAR WITH GOOD EFFECT. ASSISTED PT. THIS AM WITH SELF CATHETERIZATION, TOLERATED WELL. NO ACUTE CHANGES TO CONDITION. CALL LIGHT WITHIN REACH AND SIDE RAILS UP X2.
--- NOTE | 2020-01-23 07:50 | NUR ---
PATIENT AWAKE / ALERT AND COMFORTABLE LAYING IN BED WATCHING TV THIS MORNING. OVERNIGHT CCPD COMPLETE. PT AESEPTICALLY DISCONNECTED AND CATHETER CAPPED WITH NEW MINI-CAP. CYCLER STRIPPED AND CLEANED.
--- NOTE | 2020-01-23 14:46 | NUR ---
pt more alert today, resting well wants to try a shower. unable to recall some of the detatils of the plan so reviewed with him. He is still tearfull. He is glad to see his chaildren and to have a plan. stated dialysis went smoothly.
--- NOTE | 2020-01-23 16:19 | NUR ---
SHIFT SUMMARY PT IS A/O X 4 WITH MOMENTS OF FOREGETFULNESS. HE C/O PAIN ONCE AND WAS MEDICATED ORDERED. DIALYSIS NURSE SAW HIM THIS MORNING TO STOP HIS P.D. AND SAID HE WOULD BE BACK THIS EVENING TO START TONIGHTS P.D. PT WORKED WITH THERAPY AND GOT UP IN THE SHOWER THIS AFTERNOON. HE IS ABLE TO MAKE HIS NEEDS KNOWN AND CALLS FOR HELP WHEN NEEDED.
--- NOTE | 2020-01-23 19:13 | NUR ---
PATIENT AWAKE / ALERT/ ORIENTED AND VERBALIZED PAIN LEVEL MUCH MORE TOLERABLE TONIGHT. FINISHING DINNER CCPD SET UP STARTED. CYCLER STRUNG PROGRAMMED AND PRIMED. WHEN CYCLER READY PT CONNECTED AND OVERNIGHT CCPD STARTED. ID MONITORED FOR LOW VOLUME ALARM DUE TO NO LAST FILL. AFTER ID BYPASS, FILL #1 STARTED AND MONITORED FOR PT TOLERANCE. EXIT SITE CARE DONE AND NEW STERILE DRESSING APPLIED. CATHETER SECURED IN PD BELT TO PRECLUDE STRAIN ON EXIT SITE. MED FLOOR STAFF AWARE OF OVERNIGHT THERAPY IN PROGRESS.
--- NOTE | 2020-01-24 04:29 | NUR ---
SHIFT SUMMARY- PT. PAINFUL LAST NIGHT. MEDICATED PER EMAR WITH MINIMAL RELIEF. ALSO C/O HEARTBURN AND OVERALL RESTLESSNESS. TUMS GIVEN PER EMAR ALONG WITH SCHEDULED MEDS. PT. TOLERATED WELL. ASSISTED PT. SEVERAL TIMES WITH REPOSITIONING. PT. APPEARS TO BE RESTING COMFORTABLY AT THIS TIME. NO APPARENT DISTRESS NOTED. CALL LIGHT WITHIN REACH AND SIDE RIALS UP X2. WILL CONT TO MONITOR.
--- NOTE | 2020-01-24 07:25 | NUR ---
PATIENT AWAKE , ALERT, COMFORTABLE AND WATCHING TV WHILE LAYING ON BED THIS AM UPON ENTERING ROOM. OVERNIGHT CCPD COMPLETE. PT AESEPTICALLY DISCONNECTED AND CATHETER CAPPED WITH NEW MINI-CAP AND SECURED IN PD BELT FOR THE DAY. CYCLER STRIPPED AND CLEANED.
[2020-01-24 13:07] LABS: BASOPHILS ABSOLUTE AUTO 0.04 K/mm3 (0.00-0.23); BASOPHILS PERCENT AUTO 0 % (0-2); EOSINOPHILS PERCENT AUTO 0 % (0-6); Hematocrit 29.2 % (37.0-53.0); Hemoglobin 9.2 g/dL (13.5-17.5); IMMATURE GRAN ABSOLUTE AUTO 0.23 K/mm3 (0.00-0.10); IMMATURE GRAN PERCENT AUTO 1 % (0-1); LYMPHOCYTES ABSOLUTE AUTO 0.67 K/mm3 (0.84-5.20); LYMPHOCYTES PERCENT AUTO 4 % (21-46); MONOCYTES ABSOLUTE AUTO 0.94 K/mm3 (0.16-1.47); MONOCYTES PERCENT AUTO 5 % (4-13); Mean Corpuscular HGB 29.6 pg (26.0-34.0); Mean Corpuscular HGB Conc 31.5 g/dL (31.5-36.5); Mean Corpuscular Volume 94 fL (80-100); Mean Platelet Volume 9.6 fL (9.1-12.4); NEUTROPHILS ABSOLUTE AUTO 15.86 K/mm3 (1.96-9.15); NEUTROPHILS PERCENT AUTO 89 % (41-73); Platelet Count 498 K/mm3 (150-400); RDW Coefficient Variation 14.1 % (11.7-14.2); RDW Standard Deviation 47.8 fL (35.1-46.3); Red Blood Cell Count 3.11 M/mm3 (4.30-5.90); White Blood Cell Count 17.74 K/mm3 (4.00-11.30)
[2020-01-24 13:39] LABS: Albumin, Blood 1.7 g/dL (3.4-5.0); Albumin/Globulin Ratio 0.4 (0.8-1.8); Bilirubin, Total 0.2 mg/dL (0.1-1.0); Bun/Creatinine Ratio 12.1 (12.0-20.0); Calcium, Blood 9.3 mg/dL (8.5-10.1); Creatinine, Blood 8.56 mg/dL (0.60-1.20); Globulin, Blood 4.5 g/dL (2.2-4.0); Total Protein, Blood 6.2 g/dL (6.4-8.2)
--- NOTE | 2020-01-24 17:45 | NUR ---
PATIENT EATING DINNER. AWAKE, ALERT AND CONVERSANT. CYCLER STRUNG , PROGRAMMED AND PRIMED. PATIENT CONNECTED AND THERPY STARTED WHEN CYCLER READY. ID MONITORED FOR LOW VOL ALARM DUE TO NO LAST FILL. AFTER BYPASS, FILL #1 MONITORED FOR PAT COMFORT AND TOLERANCE. NO COMPLAINT VERBALLIZED. EXIT SITE CARE DONE. NEW STERILE DRESSING APPLIED.
--- NOTE | 2020-01-24 18:45 | NUR ---
SHIFT SUMMARY ASSISTED PT WITH SELF CATHING. ABLE TO STAND ON SIDE OF BE TO PERFORM DUTY. PD HAS BEEN HOOKED UP FOR THE EVENING. NAPPING ON AND OFF TODAY. MEDICATED FOR PAIN ONCE.
--- NOTE | 2020-01-25 04:38 | NUR ---
SHIFT SUMMARY- PT. TOLERATING PD WELL. C/O GENERALIZED PAIN 2X LAST NIGHT. MEDICATED PER EMAR WITH GOOD EFFECT. PT. SLEPT ON/OFF DURING THE SHIFT. NO APPARENT DISTRESS NOTED. ASSISTED PT. WITH SELF CATHS. NO ACUTE CHANGES TO CONDITION. CALL LIGHT WITHIN REACH AND SIDE RAILS UP X2. WILL CONT TO MONITOR.
[2020-01-25 05:39] LABS: BASOPHILS ABSOLUTE AUTO 0.02 K/mm3 (0.00-0.23); BASOPHILS PERCENT AUTO 0 % (0-2); EOSINOPHILS PERCENT AUTO 0 % (0-6); Hematocrit 28.6 % (37.0-53.0); Hemoglobin 8.8 g/dL (13.5-17.5); IMMATURE GRAN ABSOLUTE AUTO 0.17 K/mm3 (0.00-0.10); IMMATURE GRAN PERCENT AUTO 1 % (0-1); LYMPHOCYTES ABSOLUTE AUTO 1.18 K/mm3 (0.84-5.20); LYMPHOCYTES PERCENT AUTO 9 % (21-46); MONOCYTES ABSOLUTE AUTO 1.33 K/mm3 (0.16-1.47); MONOCYTES PERCENT AUTO 10 % (4-13); Mean Corpuscular HGB 28.8 pg (26.0-34.0); Mean Corpuscular HGB Conc 30.8 g/dL (31.5-36.5); Mean Corpuscular Volume 94 fL (80-100); Mean Platelet Volume 9.7 fL (9.1-12.4); NEUTROPHILS ABSOLUTE AUTO 11.19 K/mm3 (1.96-9.15); NEUTROPHILS PERCENT AUTO 81 % (41-73); Platelet Count 520 K/mm3 (150-400); RDW Standard Deviation 48.1 fL (35.1-46.3); Red Blood Cell Count 3.06 M/mm3 (4.30-5.90); White Blood Cell Count 13.89 K/mm3 (4.00-11.30)
[2020-01-25 06:09] LABS: Albumin, Blood 1.7 g/dL (3.4-5.0); Anion Gap 11 mmol/L (6-16); Blood Urea Nitrogen 110 mg/dL (8-24); CO2, Blood 25 mmol/L (21-32); Calcium, Blood 8.9 mg/dL (8.5-10.1); Chloride, Blood 94 mmol/L (98-108); Glucose, Blood 126 mg/dL (70-99); Phosphorus, Blood 6.2 mg/dL (2.5-4.9); Sodium, Blood 130 mmol/L (136-145)
[2020-01-25 06:11] LABS: Bun/Creatinine Ratio 13.5 (12.0-20.0); Creatinine, Blood 8.13 mg/dL (0.60-1.20); Glomerular Filtration Rate 7 (60-)
--- NOTE | 2020-01-25 08:38 | NUR ---
DIALYSIS-PD WENT TO PT'S ROOM AT 0730. DC'ED TX FROM PT. ID [id number] ML, UF [id number] ML, AVERAGE DWELL TIME 1:08. FLUID CLEAR. SITE CLEAR. PT USES A PD BELT. PT SAYS HE VERY SLEEPY AND MAY TAKE A NAP AFTER BREAKFAST. HE IS SWITCHING TO HEMODIALYSIS TODAY, PREPARING FOR DISCHARGE TO A REHAB/NURING HOME.
--- NOTE | 2020-01-25 14:18 | NUR ---
Routine spiritual care note: Mr. Curiel says his pain is now managed. He is awaiting biopsy results before determining POC going forward. He denies concerns and says he is tired. I will remain available.
--- NOTE | 2020-01-25 19:35 | NUR ---
DIALYSIS-PD PT HAD HD TODAY TO CHECK HIS FISTULA. HE WILL BE GOING TO HD WHEN HE IS DISCHARGED. FLUID REMOVED WAS 500ML. SO I DID A 1.5% AND 2.5% DEXTROSE BAGS TONIGHT. HE HAD A LOT OF THINGS TO DO BEFORE I COULD HOOK HIM UP. TRIP TO THE BATHROOM. NEEDING OF CHANGE OF GOWN AND ATTENDS, ETC. FINALLY GOT HIM SETTLED AND CONNECTED TO THE TX AT 1920. SITE CLEAR, HIS PD BELT WAS WET AND NEEDED TAKEN OFF. TAPED HIS PD CATH TO HIS ABD. SITE CLEAR. TALKED TO ONCOMING RN.
--- NOTE | 2020-01-25 19:41 | NUR ---
SHIFT SUMAMRY: NO ACUTE CHANGES TO REPORT THIS SHIFT. PT A&O; OCC CONFUSION; CALM AND COOPERATIVE WITH CARE. MEDICATED FOR CHRONIC NECK & SHOULDER PAIN PER EMAR. HEMODIALYSIS THIS SHIFT; PERITONEAL DIALYSIS STARTED LATE THIS SHIFT. LUNG MASS; BIOPSY PLANNED FOR 01/25; EXPECTED HOME c HOME HEALTH AFTER PROCEDURE. REPORT GIVEN TO ONCOMING RN.
[2020-01-25 22:33] LABS: Appearance, Urine Hazy (Clear); Bilirubin, Urine Neg (Neg); Blood, Urine 3+ (Neg); Color, Urine Yellow (P-Yellow); Glucose Qualitative, Urine Neg (Neg); Ketones, Urine Neg (Neg); Leukocyte Esterase, Urine 1+ (Neg); Nitrite, Urine Neg (Neg); Protein, Urine 2+ (Neg); Specific Gravity, Urine 1.015 (1.003-1.022); Urobilinogen, Urine NORM (Normal)
[2020-01-25 22:40] LABS: Bacteria Mod /hpf; Squamous Epithelial Cells Few /hpf (Few); Yeast/Fungi Urine Many /hpf
[2020-01-26 05:26] LABS: BASOPHILS ABSOLUTE AUTO 0.01 K/mm3 (0.00-0.23); BASOPHILS PERCENT AUTO 0 % (0-2); EOSINOPHILS PERCENT AUTO 0 % (0-6); Hematocrit 27.4 % (37.0-53.0); Hemoglobin 8.6 g/dL (13.5-17.5); IMMATURE GRAN ABSOLUTE AUTO 0.24 K/mm3 (0.00-0.10); IMMATURE GRAN PERCENT AUTO 2 % (0-1); LYMPHOCYTES ABSOLUTE AUTO 1.45 K/mm3 (0.84-5.20); LYMPHOCYTES PERCENT AUTO 10 % (21-46); MONOCYTES PERCENT AUTO 10 % (4-13); Mean Corpuscular HGB 29.3 pg (26.0-34.0); Mean Corpuscular HGB Conc 31.4 g/dL (31.5-36.5); Mean Corpuscular Volume 93 fL (80-100); Mean Platelet Volume 9.5 fL (9.1-12.4); NEUTROPHILS ABSOLUTE AUTO 11.18 K/mm3 (1.96-9.15); NEUTROPHILS PERCENT AUTO 78 % (41-73); Platelet Count 480 K/mm3 (150-400); RDW Standard Deviation 47.5 fL (35.1-46.3); Red Blood Cell Count 2.94 M/mm3 (4.30-5.90); White Blood Cell Count 14.38 K/mm3 (4.00-11.30)
[2020-01-26 05:43] LABS: Percent Saturation 25.1 % (20.0-50.0)
[2020-01-26 05:53] LABS: Albumin, Blood 1.8 g/dL (3.4-5.0); Anion Gap 10 mmol/L (6-16); Blood Urea Nitrogen 79 mg/dL (8-24); Bun/Creatinine Ratio 14.2 (12.0-20.0); CO2, Blood 30 mmol/L (21-32); Calcium, Blood 8.5 mg/dL (8.5-10.1); Chloride, Blood 92 mmol/L (98-108); Creatinine, Blood 5.58 mg/dL (0.60-1.20); Glomerular Filtration Rate 10 (60-); Glucose, Blood 121 mg/dL (70-99); Phosphorus, Blood 5.1 mg/dL (2.5-4.9); Sodium, Blood 132 mmol/L (136-145)
--- NOTE | 2020-01-26 06:41 | NUR ---
SHIFT SUMMARY AOX4, ANSWERS ORIENTATION QUESTIONS APPROPRIATE BUT STATES HE OCCASIONAL FEELS CONFUSED @TIMES. VSS. PD RAN DURING NIGHT & PT IS CURRENTLY STILL HOOKED UP TO PD CATHETER. REPORTS PAIN IN SHOULDER, NECK & MEDICATED 1X W/10MG ROXICODONE. DENIES N/V OR DYSPNEA. RAPID COVID TEST NEGATIVE. HELD HEPARIN LAST NIGHT PER MD ORDERS FOR PLANNED BIOPSY TODAY. CALL LIGHT IN REACH.
--- NOTE | 2020-01-26 08:52 | NUR ---
DIALYSIS-PD 0700 DC'ED PT FROM PD TX PER PROTOCAL. FLUID CLEAR, SITE CLEAR. HELPED HIM PUT ON HIS PD BELT, WHICH IS NOW DRY. PT STANDING AND WALKING WITH A WALKER BETTER THAN A FEW DAYS AGO. ID [id number] ML, UF [id number] ML.
--- NOTE | 2020-01-26 18:44 | NUR ---
SHIFT SUMMARY: NO ACUTE CHANGES TO REPORT THIS SHIFT; PT A&OP; OCC FORGETFUL; CALM AND COOEPRATIVE WITH CARE. MEDICATED FOR CHRONIC NECK/SHOULDER/BACK PAIN PER EMAR. PERITONEAL DIALYSIS THIS SHIFT. COVID FAST-SWAB COLLECTED THIS SHIFT. LUNG-MASS BIOPSY RESCHEDULED FOR 01/26. TM.
--- NOTE | 2020-01-26 21:08 | NUR ---
DIALYSIS-PD SETUP MACHINE FOR PT BUT HE WANTED TO CONNECT HIMSELF. I SETUP EVERYTHING FOR HIM AND WATCHED WHILE DID IT. HE DID A GOOD JOB. WAITED TIL THE ID WAS COMPLETED, THEN REPORTED OFF TO RADHA GARZA
--- NOTE | 2020-01-27 06:19 | NUR ---
SHIFT SUMMARY AOX4. ANSWERS QUESTIONS APPROPRIATE. VSS. DENIES N/V OR DYSPNEA. REPORTS 5-6/10 PAIN IN NECK & SHOULDERS, MEDICATED 2X W/10MG OXYCODONE. PD RAN T/O NIGHT, THIS AM PT DISCONNECTED SELF FROM PD STATING HE WANTED TO TAKE SHOWER. HAS BEEN NPO SINCE MIDNIGHT EXCEPT A SIP OF WATER W/PAIN MEDS IN ANTICIPATION FOR BIOPSY THIS MORNING. CALL LIGHT IN REACH.
[2020-01-27 10:19] LABS: International Normalized Ratio 1.06; Prothrombin Time Results 11.3 Sec (9.7-11.5)
--- NOTE | 2020-01-27 11:35 | NUR ---
Peritoneal Dialysis Pt was up and showereed on entrance to room. He had unconected himself to take a shower, but left the cycler on so that I could retreive the numbers. He had changed his dressing per protocol. All looked good. Pt was just starting to rest, as he was in great deal of pain. the IV volume was 86 ml Total UF volume was 1466 ML. The qaverage dwell was 1:06. Lost dwell was 37.
--- NOTE | 2020-01-27 19:18 | NUR ---
SHIFT SUMMARY PT UP TO BATHROOM AND SELF CATHED A MINIMAL AMOUNT OF URINE. WENT TO BIOPSY THIS MORNING AND WAS NOTE WHEN HE RETURNED A SMALL PNEUMOTHORAX HAD DEVELOPED. SINCE THEN PT REPORTS THAT HE HAS A CRAMP IN RL CHEST WHEN HE TAKES A DEEP BREATH. OTHERWISE HE SAYS HE FEELS PRETTY GOOD AN LOOKING FORWARD TO GOING HOME TOMORROW.
--- NOTE | 2020-01-27 20:08 | NUR ---
PD PATIENT AWAKE AND SITTING IN BED WAITING FOR ME WHEN I ENTERED THE ROOM. I STARTED HIS CYCLER PRINING AND GOT CALLED AWAY TO DO A CULTURE. WHEN I CAME BACK THE MACHINE WAS READY TO CONNECT TO PATIENT. PATIENT WAS CONNECTED ASEPTICALLY PER PROTOCOL. WAITED FOR LOW DRAIN VOLUME ALARM, THEN BYPASSED IT AND BEGAN TREATMENT. LEFT TO COLLECT SUPPLIES AND WENT BACK TO PATIENT ROOM. THE CYCLER WAS RUNNING ITS 1ST OF 6 CYCLES. PATIENT WAS RESTING WITH HIS EYES CLOSED. RR 18
--- NOTE | 2020-01-28 04:53 | NUR ---
SHIFT SUMMARY ASSUMED CARE OF PT AT 1900. PT IS A/OX WITH TIMES OF CONFUSIN, FOR EXAMPLE, PT FORGOT WHAT MEDS WERE GIVEN TO HIM 2 HOURS LATER. HEART SOUNDS REGULAR, DENIES CP. LUNG SOUNDS HAVE CRACKLES T/O R LUNG AND CRACKLES IN THE BASES OF THE L LUNG, DENIES SOB AT THIS TIME. PT HAD EPISODE OF SOB AND CP DURING THE NIGHT, HE SAID IT WAS PROBABLY FROM THE BIOPSY, VITAL SIGNS STABLE. PT SAID THE FEELING WENT FAST IT COME. MEDICATED PER EMAR FOR PAIN. PT AWOKE ABOUT 4 HOURS LATER C/O PAIN AGAIN, BUT IN HIS SHOULDERS, MEDICATED PER EMAR. PT HAS BEEN ON THE PERITONEAL DIALYSIS ALL T/O THE NIGHT. PT STRAIGHT CATHED HIMSELF ONCE TONIGHT. URING CLEAR AND YELLOW, IT WAS 100CC. LEGS ARE DISCOLORED. PT STATES THIS IS NORMAL. BUTTOCK SLIGHTLY REDDENED, EDUCATED ABOUT PREVENTING PRESSURE ULCERS. CALL LIGHT IN REACH, BED IN LOWEST POSITION, WILL CONTINUE TO MONITOR UNTIL DAYSHIFT NURSE ARRIVES.
[2020-01-28] MEDS ORDERED: Norco 5-325 Ta1 EACH PO (15:03)
--- NOTE | 2020-01-28 19:36 | NUR ---
DISCHARGE INSTRUCTIONS COMPLETED AND DISCUSSED WITH PT EXPRESSING UNDERSTANDING. SCRIPTS FAXED TO [facility]. GRANDDAUGHTER HERE TO PICK HIM UP. TO [facility] VIA W/C WITH HIS BELONGINGS.
== END 2020-01-28 17:02 | disposition home health service (06) ==
LOC: ER 11:34 → MEDS 11:35 → ER 15:08 → MEDS 15:08
PROVIDERS: Family Medicine; Internal Medicine; Internal Medicine Endocrinology, Diabetes & Metabolism; Physician Assistant; ADMIT Internal Medicine Gastroenterology
DX: I12.0 Hypertensive chronic kidney disease with stage 5 chronic kidney disease or end stage renal disease (principal); N18.6 End stage renal disease; J18.9 Pneumonia, unspecified organism; G92 Toxic encephalopathy; J95.811 Postprocedural pneumothorax; F41.9 Anxiety disorder, unspecified; M51.9 Unspecified thoracic, thoracolumbar and lumbosacral intervertebral disc disorder; G47.00 Insomnia, unspecified; Z99.2 Dependence on renal dialysis; D72.829 Elevated white blood cell count, unspecified; M79.18 Myalgia, other site; J44.9 Chronic obstructive pulmonary disease, unspecified; I25.10 Atherosclerotic heart disease of native coronary artery without angina pectoris; Z79.82 Long term (current) use of aspirin; Z79.899 Other long term (current) drug therapy; Z79.02 Long term (current) use of antithrombotics/antiplatelets; Z87.891 Personal history of nicotine dependence; N40.0 Benign prostatic hyperplasia without lower urinary tract symptoms; K21.9 Gastro-esophageal reflux disease without esophagitis; Z85.59 Personal history of malignant neoplasm of other urinary tract organ; Z95.1 Presence of aortocoronary bypass graft; E78.5 Hyperlipidemia, unspecified; Z88.8 Allergy status to other drugs, medicaments and biological substances; Z88.1 Allergy status to other antibiotic agents; Z88.5 Allergy status to narcotic agent; Z88.6 Allergy status to analgesic agent
CPT/HCPCS: 32405; 36415; 71045; 77012; 78306; 80048; 80053; 80069; 80202; 81001; 82728; 83540; 83550; 83605; 83735; 85025; 85610; 85730; 87040; 87070; 87075; 87086; 87106; 87205; 88305; 88312; 89051; 93005; 93010; 97110; 97116; 97162; 97166; 97530; 97535; 99285-25; A9270; A9270-GY; A9561; C9113; G0257; G0378; J0692; J0696; J0881; J1644; J1650; J3010; J3370; J7030; J7050; J7512; U0002

== ENCOUNTER 2020-04-04 21:14 | Emergency (ER) | payer MEDICARE, OTHER ==
[~2020-04-04] VITALS: Ht 172.7 cm; Wt 66.8 kg
[~2020-04-04 21:14] MED LIST changes: +ATORVASTATIN CA40 M1 PO; -DIALYVITE PO; +ISOSORBIDE MONO60 MG PO; +METO50ER PO; +Percocet 10-321 EACH; +RENAL-VITE TAB0.8 MG PO; +SUCR1 PO
[2020-04-04 21:55] LABS: BASOPHILS ABSOLUTE AUTO 0.07 K/mm3 (0.00-0.23); BASOPHILS PERCENT AUTO 1 % (0-2); EOSINOPHILS ABSOLUTE AUTO 0.54 K/mm3 (0.00-0.68); EOSINOPHILS PERCENT AUTO 4 % (0-6); Hematocrit 31.7 % (37.0-53.0); Hemoglobin 9.4 g/dL (13.5-17.5); IMMATURE GRAN ABSOLUTE AUTO 0.06 K/mm3 (0.00-0.10); IMMATURE GRAN PERCENT AUTO 0 % (0-1); LYMPHOCYTES ABSOLUTE AUTO 1.66 K/mm3 (0.84-5.20); LYMPHOCYTES PERCENT AUTO 12 % (21-46); MONOCYTES ABSOLUTE AUTO 1.71 K/mm3 (0.16-1.47); MONOCYTES PERCENT AUTO 13 % (4-13); Mean Corpuscular HGB 28.3 pg (26.0-34.0); Mean Corpuscular HGB Conc 29.7 g/dL (31.5-36.5); Mean Corpuscular Volume 96 fL (80-100); Mean Platelet Volume 9.2 fL (9.1-12.4); NEUTROPHILS ABSOLUTE AUTO 9.56 K/mm3 (1.96-9.15); NEUTROPHILS PERCENT AUTO 70 % (41-73); Platelet Count 346 K/mm3 (150-400); RDW Coefficient Variation 15.6 % (11.7-14.2); RDW Standard Deviation 53.9 fL (35.1-46.3); Red Blood Cell Count 3.32 M/mm3 (4.30-5.90)
[2020-04-04 22:26] LABS: Troponin I <0.015 ng/mL (0.000-0.040)
[2020-04-04 22:27] LABS: Alanine Aminotransfer (ALT/SGP 16 U/L (12-78); Albumin, Blood 2.3 g/dL (3.4-5.0); Albumin/Globulin Ratio 0.5 (0.8-1.8); Alk Phos 82 U/L (50-136); Anion Gap 11 mmol/L (6-16); Aspartate Aminotrans (AST/SGOT 12 U/L (12-37); Bilirubin, Total 0.3 mg/dL (0.1-1.0); Blood Urea Nitrogen 72 mg/dL (8-24); CO2, Blood 26 mmol/L (21-32); Calcium, Blood 9.5 mg/dL (8.5-10.1); Chloride, Blood 97 mmol/L (98-108); Globulin, Blood 4.5 g/dL (2.2-4.0); Glomerular Filtration Rate 5 (60-); Glucose, Blood 117 mg/dL (70-99); Potassium, Blood 4.5 mmol/L (3.5-5.5); Sodium, Blood 134 mmol/L (136-145); Total Protein, Blood 6.8 g/dL (6.4-8.2)
== END 2020-04-05 00:31 | disposition home or self-care (01) ==
LOC: ER 21:14
PROVIDERS: Emergency Medicine
DX: R07.9 Chest pain, unspecified (principal); Z88.5 Allergy status to narcotic agent; Z88.8 Allergy status to other drugs, medicaments and biological substances; Z88.6 Allergy status to analgesic agent; Z79.82 Long term (current) use of aspirin; Z79.899 Other long term (current) drug therapy; I12.0 Hypertensive chronic kidney disease with stage 5 chronic kidney disease or end stage renal disease; N18.6 End stage renal disease; F41.9 Anxiety disorder, unspecified; I25.10 Atherosclerotic heart disease of native coronary artery without angina pectoris; E78.5 Hyperlipidemia, unspecified; Z87.891 Personal history of nicotine dependence
CPT/HCPCS: 36415; 71046; 80053; 83690; 84484; 85025; 93005; 93010; 99285-25

== ENCOUNTER 2020-04-16 01:03 | Observation (INO) | payer MEDICARE, OTHER ==
[~2020-04-16] VITALS: Ht 172.7 cm; Wt 67.3 kg
[~2020-04-16 01:03] MED LIST changes: -RENAL-VITE TAB0.8 MG PO; +[UNRECOGNIZED DRUG - OTHER] PO
[2020-04-16 01:50] LABS: BASOPHILS ABSOLUTE AUTO 0.08 K/mm3 (0.00-0.23); BASOPHILS PERCENT AUTO 1 % (0-2); EOSINOPHILS PERCENT AUTO 2 % (0-6); Hematocrit 26.5 % (37.0-53.0); Hemoglobin 8.1 g/dL (13.5-17.5); IMMATURE GRAN ABSOLUTE AUTO 0.13 K/mm3 (0.00-0.10); IMMATURE GRAN PERCENT AUTO 1 % (0-1); LYMPHOCYTES ABSOLUTE AUTO 1.77 K/mm3 (0.84-5.20); LYMPHOCYTES PERCENT AUTO 11 % (21-46); MONOCYTES ABSOLUTE AUTO 1.73 K/mm3 (0.16-1.47); MONOCYTES PERCENT AUTO 11 % (4-13); Mean Corpuscular HGB 28.3 pg (26.0-34.0); Mean Corpuscular HGB Conc 30.6 g/dL (31.5-36.5); Mean Corpuscular Volume 93 fL (80-100); Mean Platelet Volume 9.2 fL (9.1-12.4); NEUTROPHILS ABSOLUTE AUTO 12.44 K/mm3 (1.96-9.15); NEUTROPHILS PERCENT AUTO 76 % (41-73); Platelet Count 349 K/mm3 (150-400); RDW Coefficient Variation 14.7 % (11.7-14.2); RDW Standard Deviation 49.7 fL (35.1-46.3); Red Blood Cell Count 2.86 M/mm3 (4.30-5.90); White Blood Cell Count 16.45 K/mm3 (4.00-11.30)
[2020-04-16 02:06] LABS: Troponin I 0.081 ng/mL (0.000-0.040)
[2020-04-16 02:22] LABS: Albumin, Blood 2.2 g/dL (3.4-5.0); Albumin/Globulin Ratio 0.4 (0.8-1.8); Bilirubin, Total 0.3 mg/dL (0.1-1.0); Bun/Creatinine Ratio 8.8 (12.0-20.0); Calcium, Blood 9.6 mg/dL (8.5-10.1); Creatinine, Blood 9.16 mg/dL (0.60-1.20); Globulin, Blood 4.9 g/dL (2.2-4.0); Potassium, Blood 4.8 mmol/L (3.5-5.5); Total Protein, Blood 7.1 g/dL (6.4-8.2)
[2020-04-16 03:17] LABS: Magnesium, Blood 2.4 mg/dL (1.6-2.4)
[2020-04-16 04:02] LABS: Percent Saturation 26.9 % (20.0-50.0)
--- NOTE | 2020-04-16 06:09 | NUR ---
SHIFT SUMMARY ASSUMED CARE OF PT AT 0450. PT IS A/OX4, DENIES N/T IN EXTREMITES. HEART SOUNDS ARE IRREGULAR, PT HAS MURMUR, HX BIPASS SURGERY. LUNG SOUNDS HAVE CRACKLES AT THE BASES, DENIES SOB. PT HAS FIT OF NEASEA, CALLED DOCTOR FOR ZOFRAN BUT PT STATED THE FEELING PASSED AND DENIED NEEDING THE MEDICATION. PT STRAIGHT CATHS HIMSELF. MY DOES PERITONEAL DIALYSIS AT HOME BUT DID NOT GET HIS LAST NIGHT UE TO CP. PT STATES THAT HE FEELS ALMOST NORMAL NOW EXPECT FOR HAVING HEARTBURN. PT IS INDEPENDENT IN ROOM WITH WALKER. CALL LIGHT IN REACH, BED IN LOWEST POSTION, WILL CONTINUE TO MONITOR UNTIL DAYSHIFT NURSE ARRIVES.
--- NOTE | 2020-04-16 17:45 | NUR ---
SHIFT SUMMARY- PT IS A/O, PLESANT AND COOPERATIVE. HE HAS SOME INTERMITENT CONFUSION. HE IS EATING AND DRINKING WELL. HIS TROPONINS ELEVATED FROM 0.081 THIS MORNING TO 1.67 IN AM LABS, THEN DECREASED TO 1.44 THIS AFTERNOON. DISCUSSED TREND WITH DR. BALBUENA. PT RECIEVED THE FIRST PART OF A STRESS TEST TODAY. HE WILL BE NPO AFTER MIDNIGHT AND NO CAFFINE AFTER 8 FOR THE SECOND PART TOMORROW. HE RECIEVED A HEAD CT WITHOUT CONTRAST THIS AFTERNOON. HE WILL ALSO RECIEVE AN ECHO TOMORROW. HE RECIEVED DIALYSIS THIS EVENING.
--- NOTE | 2020-04-16 18:16 | NUR ---
PATIENT AWAKE ALERT AND COMFORTABLE. NO VERB COMPLAINTS. CCPD SET UP PER DR MARAVILLA'S ORDER. WHEN PRIME COMPLETE, PT AESEPTICALLY CONNECTED AND THERAPY STARTED. INITIAL DRAIN AND FILL #1 MONITORED TO GUAGE PT COMFORT. NO DISCOMFORT REPORTED. EXIT SITE CARE DONE AND NEW STERILE DRESSING APPLIED. EXIT DRY, TIGHT AND NON-TENDER. MED FLOOR STAFF AWARE OF OVERNIGHT THERAPY IN PROGRESS.
--- NOTE | 2020-04-17 02:42 | NUR ---
PER REVENUE TAX SPECIALIST PT'S HEART RATE JUMPED UP TO THE 130'S FOR APPROX 30 SECONDS AND THEN CAME RIGHT BACK DOWN TO THE 90'S. REMAINED SINUS RHYTHM.
--- NOTE | 2020-04-17 04:23 | NUR ---
SHIFT SUMMARY PT WAS RESTLESS OFF AND ON THIS EVENING. STATING THAT THE HOSPITAL BEDS WERE DIFFICULT TO GET COMFORTABLE IN. OFFERED AN EGG CRATE BUT PT DECLINED. PT DID SLEEP FOR SEVERAL HOURS AT A TIME. PERITONEAL DIALYSIS RAN THROUGHOUT THE NIGHT. NO EQUIPMENT ALARMS DURING. PT DID COMPLAIN OF PAIN IN NECK AND BACK, STATING THAT THIS IS CHRONIC. MEDICATED W FENTANYL X 1 WHICH WAS NOT VERY EFFECTIVE. NEW ORDER FOR NORCO 5/325 Q 6 HRS PRN. NORCO MORE EFFECTIVE. PT HAS BEEN HYPOTENSIVE TONIGHT WITH SYSTOLICS IN THE 90'S. PT IS ASYMPTOMATIC AND REPORTS THAT THIS IS "NORMAL" FOR HIM. TELEMETRY READING SR IN THE 90'S. OTHERWISE NO ACUTE CHANGES. PT RESTING IN BED. APPEARS TO BE SLEEPING AT THIS TIME. WILL CONTINUE TO MONITOR AND REPORT TO DAY RN.
--- NOTE | 2020-04-17 06:37 | NUR ---
CHIEF STEWARD/STEWARDESS ISRAEL CAME OUT AFTER UNHOOKING PT FROM PERITONEAL DIALYSIS AND STATED THAT PT WAS REPORTING A SMALL AMOUNT OF BLOOD IN HIS URINE. THIS HAS NOT BEEN VISUALIZED BY THIS RN.
--- NOTE | 2020-04-17 06:55 | NUR ---
PATIENT SITTING UP AT BEDSIDE THIS AM WHEN ENTERING ROOM. OVERNIGHT CCPD COMPLETED AND PATIENT HAS ALREADY DISCONNECTED AND CAPPED HIMSELF. EFFLUENT TATUM / CLEAR. CYCLER STRIPPED AND CLEANED.
[2020-04-17 09:44] LABS: BASOPHILS ABSOLUTE AUTO 0.08 K/mm3 (0.00-0.23); BASOPHILS PERCENT AUTO 1 % (0-2); EOSINOPHILS ABSOLUTE AUTO 0.39 K/mm3 (0.00-0.68); EOSINOPHILS PERCENT AUTO 3 % (0-6); Hematocrit 27.9 % (37.0-53.0); Hemoglobin 8.5 g/dL (13.5-17.5); IMMATURE GRAN ABSOLUTE AUTO 0.09 K/mm3 (0.00-0.10); IMMATURE GRAN PERCENT AUTO 1 % (0-1); LYMPHOCYTES ABSOLUTE AUTO 1.44 K/mm3 (0.84-5.20); LYMPHOCYTES PERCENT AUTO 10 % (21-46); MONOCYTES ABSOLUTE AUTO 1.38 K/mm3 (0.16-1.47); MONOCYTES PERCENT AUTO 10 % (4-13); Mean Corpuscular HGB 28.1 pg (26.0-34.0); Mean Corpuscular HGB Conc 30.5 g/dL (31.5-36.5); Mean Corpuscular Volume 92 fL (80-100); Mean Platelet Volume 9.4 fL (9.1-12.4); NEUTROPHILS ABSOLUTE AUTO 10.98 K/mm3 (1.96-9.15); NEUTROPHILS PERCENT AUTO 77 % (41-73); Platelet Count 371 K/mm3 (150-400); RDW Coefficient Variation 14.7 % (11.7-14.2); RDW Standard Deviation 49.5 fL (35.1-46.3); Red Blood Cell Count 3.02 M/mm3 (4.30-5.90); White Blood Cell Count 14.36 K/mm3 (4.00-11.30)
[2020-04-17 10:14] LABS: Albumin, Blood 2.1 g/dL (3.4-5.0); Anion Gap 12 mmol/L (6-16); Blood Urea Nitrogen 85 mg/dL (8-24); Bun/Creatinine Ratio 9.4 (12.0-20.0); CO2, Blood 24 mmol/L (21-32); Calcium, Blood 9.5 mg/dL (8.5-10.1); Chloride, Blood 95 mmol/L (98-108); Creatinine, Blood 9.01 mg/dL (0.60-1.20); Glomerular Filtration Rate 6 (60-); Glucose, Blood 152 mg/dL (70-99); Phosphorus, Blood 4.4 mg/dL (2.5-4.9); Potassium, Blood 4.7 mmol/L (3.5-5.5); Sodium, Blood 131 mmol/L (136-145)
--- NOTE | 2020-04-17 10:42 | NUR ---
Echocardiogram completed.
[2020-04-17 13:24] LABS: Source, Urine Clean Catch
[2020-04-17 13:40] LABS: Appearance, Urine Hazy (Clear); Bilirubin, Urine Neg (Neg); Blood, Urine 5+ (Neg); Color, Urine Yellow (P-Yellow); Glucose Qualitative, Urine Neg (Neg); Ketones, Urine Neg (Neg); Leukocyte Esterase, Urine 1+ (Neg); Nitrite, Urine Neg (Neg); Protein, Urine 3+ (Neg); Specific Gravity, Urine 1.015 (1.003-1.022); Urobilinogen, Urine NORM (Normal); pH, Urine 6.5 (5.0-8.0)
[2020-04-17 14:09] LABS: Bacteria Mod /hpf; Red Blood Cells, Urine TNTC /hpf (0-2); Squamous Epithelial Cells Mod /hpf (Few)
--- NOTE | 2020-04-17 18:36 | NUR ---
SHIFT SUMMARY- PT DISCHARGED FROM THE UNIT THIS EVENING. HE HAD AN ECHO PREFORMED THIS MORNING AND THE SECOND PART OF A CARDIAC STRESS TEST. CARDIOLOGY WAS CONSULTED AND DISCUSSED THE NEED FOR AN ANGIOGRAM. AFTER DISCUSSION WITH FAMILY PT DECIDED AGAINST AN ANGIOGRAM AT THIS TIME. MEDICATIONS WERE ADJUSTED AND FOLLOW UP APOINTMENTS ARE NEEDED. PT NOTIFIED OF MEDICATION CHANGES AND OF NEED TO MAKE APTS. HIS DAUGHTER WILL DRIVE HOME. IVS REMOVED. AND DISCHARGE INSTRUCTIONS REVIEWED WITH PT AND DAUGHTER.
== END 2020-04-17 19:10 | disposition home or self-care (01) ==
LOC: ER 01:03 → MEDS 01:04
PROVIDERS: Emergency Medicine; Internal Medicine; ADMIT Family Medicine
DX: I21.4 Non-ST elevation (NSTEMI) myocardial infarction (principal); I25.10 Atherosclerotic heart disease of native coronary artery without angina pectoris; I35.0 Nonrheumatic aortic (valve) stenosis; I12.0 Hypertensive chronic kidney disease with stage 5 chronic kidney disease or end stage renal disease; N18.6 End stage renal disease; E78.5 Hyperlipidemia, unspecified; F41.9 Anxiety disorder, unspecified; D63.1 Anemia in chronic kidney disease; G89.4 Chronic pain syndrome; M19.90 Unspecified osteoarthritis, unspecified site; Z99.2 Dependence on renal dialysis; Z79.899 Other long term (current) drug therapy; Z79.02 Long term (current) use of antithrombotics/antiplatelets; Z88.5 Allergy status to narcotic agent; Z88.6 Allergy status to analgesic agent; Z88.1 Allergy status to other antibiotic agents; Z88.8 Allergy status to other drugs, medicaments and biological substances; Z79.82 Long term (current) use of aspirin; Z87.891 Personal history of nicotine dependence
CPT/HCPCS: 36415; 70450; 71046; 78452; 80053; 80069; 81001; 82607; 82728; 82746; 83540; 83550; 83735; 83880; 84484; 85025; 87086; 93005; 93010; 93017; 93308; 93321; 99285-25; A9270; A9270-GY; A9500; C9113; G0257; J0280; J0881; J1644; J2785; J3010

== ENCOUNTER → 2020-05-01 | Outpatient (CLI) | payer MEDICARE, OTHER ==
[~2020-05-01] MED LIST changes: +ATOR80 PO; +FERSU300 PO; +ISOSORBIDE MONO30 MG PO; +METO25ER PO; -METO50ER PO
[2020-05-01 15:03] LABS: BASOPHILS ABSOLUTE AUTO 0.09 K/mm3 (0.00-0.23); BASOPHILS PERCENT AUTO 1 % (0-2); EOSINOPHILS ABSOLUTE AUTO 0.11 K/mm3 (0.00-0.68); EOSINOPHILS PERCENT AUTO 1 % (0-6); Hematocrit 31.1 % (37.0-53.0); Hemoglobin 9.7 g/dL (13.5-17.5); IMMATURE GRAN ABSOLUTE AUTO 0.11 K/mm3 (0.00-0.10); IMMATURE GRAN PERCENT AUTO 1 % (0-1); LYMPHOCYTES ABSOLUTE AUTO 2.13 K/mm3 (0.84-5.20); LYMPHOCYTES PERCENT AUTO 15 % (21-46); MONOCYTES ABSOLUTE AUTO 1.43 K/mm3 (0.16-1.47); MONOCYTES PERCENT AUTO 10 % (4-13); Mean Corpuscular HGB 28.6 pg (26.0-34.0); Mean Corpuscular HGB Conc 31.2 g/dL (31.5-36.5); Mean Corpuscular Volume 92 fL (80-100); Mean Platelet Volume 9.7 fL (9.1-12.4); NEUTROPHILS ABSOLUTE AUTO 10.08 K/mm3 (1.96-9.15); NEUTROPHILS PERCENT AUTO 72 % (41-73); Platelet Count 430 K/mm3 (150-400); RDW Coefficient Variation 15.9 % (11.7-14.2); RDW Standard Deviation 52.5 fL (35.1-46.3); Red Blood Cell Count 3.39 M/mm3 (4.30-5.90); White Blood Cell Count 13.95 K/mm3 (4.00-11.30)
[2020-05-01 15:11] LABS: Albumin, Blood 2.7 g/dL (3.4-5.0); Albumin/Globulin Ratio 0.5 (0.8-1.8); Bilirubin, Total 0.4 mg/dL (0.1-1.0); Bun/Creatinine Ratio 5.9 (12.0-20.0); Calcium, Blood 10.6 mg/dL (8.5-10.1); Globulin, Blood 5.2 g/dL (2.2-4.0); Total Protein, Blood 7.9 g/dL (6.4-8.2)
[2020-05-01 15:14] LABS: Creatinine, Blood 9.75 mg/dL (0.60-1.20)
== END | disposition home or self-care (01) ==
LOC: LAB EV 14:58 → LAB SHORT 14:58
PROVIDERS: General Practice
DX: I25.10 Atherosclerotic heart disease of native coronary artery without angina pectoris (principal)
CPT/HCPCS: 80053; 85025

== ENCOUNTER 2020-05-21 04:58 | Inpatient (IN) | payer MEDICARE, OTHER ==
[~2020-05-21] VITALS: Ht 172.7 cm; Wt 99.6 kg
[~2020-05-21 04:58] MED LIST changes: -ATOR80 PO; -FERSU300 PO; -ISOSORBIDE MONO30 MG PO
[2020-05-21 05:41] LABS: BASOPHILS ABSOLUTE AUTO 0.04 K/mm3 (0.00-0.23); BASOPHILS PERCENT AUTO 1 % (0-2); EOSINOPHILS ABSOLUTE AUTO 0.17 K/mm3 (0.00-0.68); EOSINOPHILS PERCENT AUTO 2 % (0-6); Hematocrit 26.3 % (37.0-53.0); IMMATURE GRAN ABSOLUTE AUTO 0.05 K/mm3 (0.00-0.10); IMMATURE GRAN PERCENT AUTO 1 % (0-1); LYMPHOCYTES ABSOLUTE AUTO 1.43 K/mm3 (0.84-5.20); LYMPHOCYTES PERCENT AUTO 17 % (21-46); MONOCYTES ABSOLUTE AUTO 1.04 K/mm3 (0.16-1.47); MONOCYTES PERCENT AUTO 12 % (4-13); Mean Corpuscular HGB Conc 30.4 g/dL (31.5-36.5); Mean Corpuscular Volume 95 fL (80-100); Mean Platelet Volume 9.8 fL (9.1-12.4); NEUTROPHILS PERCENT AUTO 68 % (41-73); Platelet Count 283 K/mm3 (150-400); RDW Standard Deviation 52.9 fL (35.1-46.3); Red Blood Cell Count 2.76 M/mm3 (4.30-5.90); White Blood Cell Count 8.53 K/mm3 (4.00-11.30)
[2020-05-21] MEDS ORDERED: ATOR80 PO (06:04)
[2020-05-21] MEDS ORDERED: ISOSORBIDE MONO30 MG PO (06:08)
[2020-05-21] MEDS ORDERED: Calcium Acetat667 MG PO (06:13)
[2020-05-21 06:14] LABS: Troponin I 0.015 ng/mL (0.000-0.040)
[2020-05-21] MEDS ORDERED: DUTA.5 PO (06:14)
[2020-05-21 06:16] LABS: Albumin, Blood 2.4 g/dL (3.4-5.0); Albumin/Globulin Ratio 0.6 (0.8-1.8); Bilirubin, Total 0.3 mg/dL (0.1-1.0); Calcium, Blood 9.2 mg/dL (8.5-10.1); Creatinine, Blood 8.89 mg/dL (0.60-1.20); Globulin, Blood 3.9 g/dL (2.2-4.0); Potassium, Blood 4.8 mmol/L (3.5-5.5); Total Protein, Blood 6.3 g/dL (6.4-8.2)
[2020-05-21 06:18] LABS: International Normalized Ratio 1.06; Prothrombin Time Results 11.3 Sec (9.7-11.5)
--- NOTE | 2020-05-21 09:31 | NUR ---
PT ARRIVED TO PCU 16 VIA GURNEY FROM ED. REPORT WAS OBTAINED, PT IS A/OX3, PLEASANT AND COOPERATIVE WITH CARE, FOLLOWS COMMANDS WELL, REPORTS SOME CHRONIC PAIN IN LOW BACK, WAS GIVEN FENTANYL IN ED FOR IT, LUNGS ARE CLEAR DIM IN BASES, RESP EVEN AND UNLABORED, NO COUGH NOTED, HRR, TELE IN PLACE RUNNING SR PER MONITOR, SEE STRIP, NO EDEMA NOTED, PPP+2, CAP REFILL <3SEC, VS STABLE, AFEBRILE, IV SITE IS CLEAR AND PATENT, BTX4, LAST BM THIS AM, REPORTS HE SELF CATHS, AND IS ON P.D. DR. DAMON ANSWERING SERVICE NOTIFIED OF ADMIT, SKIN C/W/D, P.D. TUBE INSERTION SITE IS CLEAR, FAITH BARCENAS, ORIENTED TO ROOM LAYOUT AND CALL SYSTEM, CALL LIGHT IN REACH.
--- NOTE | 2020-05-21 12:33 | NUR ---
DR. MARTE SAW PT, STARTED HIM ON BOWEL PREP, TOLERATING IT SO FAR, CALL LIGHT IN REACH.
--- NOTE | 2020-05-21 13:24 | NUR ---
DIALYSIS-PD TALKED TO PT ABOUT HIS PD RX. HE SAID THAT HE SAW HIS PD RN YESTERDAY AND THEY MADE A FEW CHANGES. CALLED HER AT [facility] AND REVIEW HIS NEW RX WITH HER. HE IS HAVING A SCOPE TODAY AT SOME TIME. WILL RETURN THIS EVENING TO CONNECT HIM TO HIS TX.
[2020-05-21 14:03] LABS: Hematocrit 28.5 % (37.0-53.0); Hemoglobin 8.7 g/dL (13.5-17.5)
--- NOTE | 2020-05-21 15:23 | NUR ---
Received call from Bedside RN Gerardo reporting Pt is undecided on wishes for code status. Currently he is a DNR. Pt resting in bed with daughter Jagruti at bedside. Engaged in therapeutic discussion regarding code status. Educated on life sustaining treatments including risk factors and implications. Pt expresses appreciation and states he wishes to remain a DNR. Offered therapeutic listening and anwered questions. Discussed plan of care. Offered to assist completing POLST/AD with Pt denying need at this time. No other concerns reported at this time. Palliative Care will remain available.
--- NOTE | 2020-05-21 18:07 | NUR ---
pt was started on golytely this early afternoon, did begin to get nausiated, was given zofran several times, but did complete the whole amount, is also haveing some pain in the lower quadrants, daughter was in to see him. his stool is clear pink at this time, Dr. Mariano was notified and will take him for a scope at 1900. gave a pain pill for the pain, at his request, call light in reach.
--- NOTE | 2020-05-21 19:11 | NUR ---
05/21/201910 Kari Almanzar MONITOR INTACT WITH CONTINUOUS PULSE OXIMETRY AND INTERMITTENT BP. 3-LEAD EKG REVIEWED WITH PHYSICIAN PRIOR TO START OF PROCEDURE.
--- NOTE | 2020-05-21 19:15 | NUR ---
DIALYSIS-PD CAME IN TO CONNECT PT TO THE PD TX. HE WAS BEING TAKEN DOWN TO THE OR FOR HIS PROCEDURE. THEY BELIEVE HE WILL BE BACK AT AROUND 1999. TALKED TO HIS RN ABOUT PD.
--- NOTE | 2020-05-21 21:14 | NUR ---
DIALYSIS-PD MACHINE FOR PD TX READY, BUT PT HAD CP AND PAIN DOWN HIS ARM WHEN HE RETURNED FROM THE PROCEDURE. PT VSS, GIVEN NITRO SL. WITH FAIRLY FAST RESULTS. CONNECTED PT TO TX. HE KEPT QUESTIONING THINGS. I BELIEVE HE WAS ALITTLE ANXIOUS ABOUT ME LEAVING. [id number] ML TOTAL VOLUME. 1800 DWELL, 500 LAST FILL. 10 HOURS. 1-6 LITER 1.5% AND 1-6 LITER 2.5% DEXTROSE. TX STARTED AT 2100.
[2020-05-21 21:52] LABS: Hematocrit 25.2 % (37.0-53.0); Hemoglobin 7.6 g/dL (13.5-17.5)
[2020-05-22 05:48] LABS: BASOPHILS ABSOLUTE AUTO 0.03 K/mm3 (0.00-0.23); BASOPHILS PERCENT AUTO 0 % (0-2); EOSINOPHILS ABSOLUTE AUTO 0.12 K/mm3 (0.00-0.68); EOSINOPHILS PERCENT AUTO 2 % (0-6); Hematocrit 21.5 % (37.0-53.0); Hemoglobin 6.5 g/dL (13.5-17.5); IMMATURE GRAN ABSOLUTE AUTO 0.03 K/mm3 (0.00-0.10); IMMATURE GRAN PERCENT AUTO 0 % (0-1); LYMPHOCYTES ABSOLUTE AUTO 1.35 K/mm3 (0.84-5.20); LYMPHOCYTES PERCENT AUTO 19 % (21-46); MONOCYTES ABSOLUTE AUTO 1.03 K/mm3 (0.16-1.47); MONOCYTES PERCENT AUTO 15 % (4-13); Mean Corpuscular HGB 28.8 pg (26.0-34.0); Mean Corpuscular HGB Conc 30.2 g/dL (31.5-36.5); Mean Corpuscular Volume 95 fL (80-100); Mean Platelet Volume 9.6 fL (9.1-12.4); NEUTROPHILS ABSOLUTE AUTO 4.52 K/mm3 (1.96-9.15); NEUTROPHILS PERCENT AUTO 64 % (41-73); Platelet Count 249 K/mm3 (150-400); RDW Coefficient Variation 14.8 % (11.7-14.2); RDW Standard Deviation 51.6 fL (35.1-46.3); Red Blood Cell Count 2.26 M/mm3 (4.30-5.90); White Blood Cell Count 7.08 K/mm3 (4.00-11.30)
[2020-05-22 06:12] LABS: Anion Gap 9 mmol/L (6-16); Blood Urea Nitrogen 49 mg/dL (8-24); CO2, Blood 27 mmol/L (21-32); Calcium, Blood 8.4 mg/dL (8.5-10.1); Chloride, Blood 102 mmol/L (98-108); Glucose, Blood 110 mg/dL (70-99); Phosphorus, Blood 5.8 mg/dL (2.5-4.9); Potassium, Blood 4.6 mmol/L (3.5-5.5); Sodium, Blood 138 mmol/L (136-145)
[2020-05-22 06:13] LABS: Bun/Creatinine Ratio 6.1 (12.0-20.0); Creatinine, Blood 8.07 mg/dL (0.60-1.20); Glomerular Filtration Rate 7 (60-)
--- NOTE | 2020-05-22 06:39 | NUR ---
SHIFT ASSESSMENT PT ARRIVED BACK TO ROOM AROUND 2029 AND TRANSFERED TO PCU BED, PT STARTED TO COMPLAIN OF INCREASING CHEST PAIN AND PAIN RADIATING DOWN LEFT ARM, GAVE ONE TAB OF NITRO SL AND PT STATED PAIN SUBSIDED. BP AND HR STABLE T/O SHIFT. PT ON CLEAR LIQUID DIET, HAD ONE BM THAT WAS CLEAR WITH SMALL SPOTS OF BLOOD. PT STATED HAVING MORE CHEST PAIN IN THE AM AND GIVEN ANOTHER TAB OF NITRO. HGB 7.6 IN PM AND DOWN TO 6.5 IN AM, DR NOTIFIED AND 2 UNITS PRBC ORDERED. PT HAD PERITONEAL DIALYSIS RUNNING T/O THE NIGHT. WILL CONTINUE TO MONITOR UNTIL SHIFT CHANGE.
--- NOTE | 2020-05-22 07:41 | NUR ---
DIALYSIS-PD PT AWAKE GETTING CHEM BG DONE. TX COMPLETED ID [id number]. UF [id number]. PT LOW ON HGB, GETTING 2 UNITS OF PRBC TODAY. SAYS HE FEELS BETTER GOOD, STILL HAVING CP OCCASIONALLY.
[2020-05-22 14:32] LABS: Hematocrit 28.9 % (37.0-53.0); Hemoglobin 9.1 g/dL (13.5-17.5)
--- NOTE | 2020-05-22 16:59 | NUR ---
SHIFT SUMMARY PT A&Ox3; CALM AND COOPERATIVE WITH CARE. PT REPORT CHEST PAIN THIS AM; CONTINUEING FROM LAST NOC; NITRO GIVEN AT SHIFT CHANGE BY SQL ENGINEER; NOTIFIED DR WHITNEY; NEW ORDERS FOR TROP. PT RECEIVED 2 UNITS OF PRBC; CHEST PAIN RESOLVED COMPLETELY AFTER 2ND UNIT, PER PT REPORT. PT SOB WITH EXERTION, SPO2 >90% T/O SHIFT. PT DENIES NAUSEA AND DIZZINESS. VSS. NO OTHER ACUTE CHANGES NOTED. WILL CONTINUE TO MONIOTR UNTIL REPORT GIVEN TO ONCOMING RN.
--- NOTE | 2020-05-22 19:57 | NUR ---
DIALYSIS-PD TOOK SUPPLIES INTO PT'S ROOM. PT STATES NO CP AND FEELING MUCH BETTER. SET UP MACHINE, PRIMED, AND CONNECTED PT AT 1930. WAITED FOR THE ID TO COMPLETE AND THEN SPOKE TO THE RN FOR THE EVENING. USED 1.5% 6L AND 2.5% 6L BAGS. 10 HRS TX. 500ML LAST FILL.
[2020-05-22 21:47] LABS: Hematocrit 27.5 % (37.0-53.0); Hemoglobin 8.7 g/dL (13.5-17.5)
[2020-05-23 04:23] LABS: BASOPHILS ABSOLUTE AUTO 0.04 K/mm3 (0.00-0.23); BASOPHILS PERCENT AUTO 0 % (0-2); EOSINOPHILS ABSOLUTE AUTO 0.24 K/mm3 (0.00-0.68); EOSINOPHILS PERCENT AUTO 3 % (0-6); Hematocrit 30.9 % (37.0-53.0); Hemoglobin 9.7 g/dL (13.5-17.5); IMMATURE GRAN ABSOLUTE AUTO 0.03 K/mm3 (0.00-0.10); IMMATURE GRAN PERCENT AUTO 0 % (0-1); LYMPHOCYTES ABSOLUTE AUTO 1.64 K/mm3 (0.84-5.20); LYMPHOCYTES PERCENT AUTO 18 % (21-46); MONOCYTES ABSOLUTE AUTO 1.17 K/mm3 (0.16-1.47); MONOCYTES PERCENT AUTO 13 % (4-13); Mean Corpuscular HGB 29.1 pg (26.0-34.0); Mean Corpuscular HGB Conc 31.4 g/dL (31.5-36.5); Mean Corpuscular Volume 93 fL (80-100); Mean Platelet Volume 9.7 fL (9.1-12.4); NEUTROPHILS ABSOLUTE AUTO 6.13 K/mm3 (1.96-9.15); NEUTROPHILS PERCENT AUTO 66 % (41-73); Platelet Count 235 K/mm3 (150-400); RDW Coefficient Variation 14.7 % (11.7-14.2); RDW Standard Deviation 50.6 fL (35.1-46.3); Red Blood Cell Count 3.33 M/mm3 (4.30-5.90); White Blood Cell Count 9.25 K/mm3 (4.00-11.30)
--- NOTE | 2020-05-23 04:39 | NUR ---
SHIFT SUMMARY PT HAD PERITONEAL DIALYSIS RUNNING T/O THE NIGHT. NO COMPLAINTS OF CHEST PAIN. STATED HAVING NAUSEA EARY THIS MORNING, GAVE ZOFRAN AND PT STATED NO MORE NAUSEA. HR AND BP STABLE. NO ABD DISTENTION OR TENDERNESS. BOWEL MOVEMENTS AND URINE CLEAR. PT SLEPT MOST OF THE NIGHT. WILL CONTINUE TO MONITOR UNTIL SHIFT CHANGE. BED IN LOW POSITION AND CALL LIGHT WITHIN REACH.
[2020-05-23 04:45] LABS: Albumin, Blood 2.1 g/dL (3.4-5.0); Anion Gap 10 mmol/L (6-16); Blood Urea Nitrogen 45 mg/dL (8-24); Bun/Creatinine Ratio 5.8 (12.0-20.0); CO2, Blood 26 mmol/L (21-32); Calcium, Blood 8.9 mg/dL (8.5-10.1); Chloride, Blood 100 mmol/L (98-108); Creatinine, Blood 7.72 mg/dL (0.60-1.20); Glomerular Filtration Rate 7 (60-); Glucose, Blood 106 mg/dL (70-99); Magnesium, Blood 1.7 mg/dL (1.6-2.4); Phosphorus, Blood 6.3 mg/dL (2.5-4.9); Potassium, Blood 3.9 mmol/L (3.5-5.5); Sodium, Blood 136 mmol/L (136-145); Troponin I 0.018 ng/mL (0.000-0.040)
--- NOTE | 2020-05-23 06:56 | NUR ---
PATIENT AWAKE / ALERT / COMFORTABLE. OVERNIGHT CCPD COMPLETE. PATIENT AESEPTICALLY DISCONNECTED. NEW MIN-CAP INSTALLED ON CATHETER AND CATHETER SECURED IN PD BELT. CYCLER STRIPPED AND CLEANED.
--- NOTE | 2020-05-23 12:00 | NUR ---
Spiritual care visit conducted. Patient is lying in bed and alert. Patient tells me about his medical issues and the current medical plan. Patient shares about his family, his spiritual journey, his concern about care once he returns home and his peace about dying. I listen empathically, normalize patient's experience and provide spiritual guidance, companionship and prayer. Patient responds well and shows signs of reduced stress. Patient verbalizes appreciation for the visit. I will continue to assist patient in discussions centered around self-forgiveness.
--- NOTE | 2020-05-23 17:59 | NUR ---
AWAKE , ALERT , CONVERSANT, SITTING AT EDGE OF BED FOR DINNER. CYCLER STRUNG, PROGRAMMED AND PRIME PER DR MARAVILLA'S RX. PATIENT AESEPTACALLY CONNECTED WHEN PRIME COMPLETE AND OVERNIGHT CCPD STARTED. EXIT SITE CARE DONE. NEW STERILE DRESSING APPLIED. PCU STAFF AWRE OF OVERNIGHT THERAPY IN PROGRESS.
--- NOTE | 2020-05-23 18:17 | NUR ---
SUMMARY PT HAS DONE WELL THROUGH THE DAY. HE IS A&O X4, INDEPENDENT IN THE ROOM, ON RA, VSS. DIET WAS ADVANCED TO MECH SOFT THIS AFTERNOON, PT HAS TOLERATED IT WITH NO PROBLEMS, HE CONTINUES TO DENY PAIN/NAUSEA. NO BM NOTED TODAY. PO NORCO GIVEN PER PT REQUEST X1 FOR BACK PAIN. WCTM & REPORT TO NOC RN, DRUM WORKER IN THE ROOM AT THIS TIME, CALL LIGHT IN REACH.
[2020-05-24 05:24] LABS: BASOPHILS ABSOLUTE AUTO 0.04 K/mm3 (0.00-0.23); BASOPHILS PERCENT AUTO 0 % (0-2); EOSINOPHILS ABSOLUTE AUTO 0.26 K/mm3 (0.00-0.68); EOSINOPHILS PERCENT AUTO 3 % (0-6); Hematocrit 26.9 % (37.0-53.0); Hemoglobin 8.6 g/dL (13.5-17.5); IMMATURE GRAN ABSOLUTE AUTO 0.05 K/mm3 (0.00-0.10); IMMATURE GRAN PERCENT AUTO 1 % (0-1); LYMPHOCYTES ABSOLUTE AUTO 1.46 K/mm3 (0.84-5.20); LYMPHOCYTES PERCENT AUTO 15 % (21-46); MONOCYTES ABSOLUTE AUTO 1.24 K/mm3 (0.16-1.47); MONOCYTES PERCENT AUTO 13 % (4-13); Mean Corpuscular HGB 29.7 pg (26.0-34.0); Mean Corpuscular Volume 93 fL (80-100); Mean Platelet Volume 10.3 fL (9.1-12.4); NEUTROPHILS ABSOLUTE AUTO 6.78 K/mm3 (1.96-9.15); NEUTROPHILS PERCENT AUTO 69 % (41-73); Platelet Count 232 K/mm3 (150-400); RDW Coefficient Variation 14.6 % (11.7-14.2); RDW Standard Deviation 49.2 fL (35.1-46.3); White Blood Cell Count 9.83 K/mm3 (4.00-11.30)
[2020-05-24 05:59] LABS: Bun/Creatinine Ratio 5.4 (12.0-20.0); Calcium, Blood 8.1 mg/dL (8.5-10.1); Creatinine, Blood 7.59 mg/dL (0.60-1.20); Potassium, Blood 3.8 mmol/L (3.5-5.5)
--- NOTE | 2020-05-24 06:55 | NUR ---
AWAKE, ALERT, LAYING IN BED POST OVERNIGHT CCPD. PATIENT HAS ALREADY SELF DISCONNECTED. CYCLER STRIPPED AND CLEANED AND RETURNED TO STORAGE IN ANTICIPATION OF DC TO HOME TODAY. PATIENT VERB ANTICIPATION AND READINESS FOR DISCHARGE.
--- NOTE | 2020-05-24 08:21 | NUR ---
SHIFT SUMMARY PT A/OX4; IND IN ROOM. REPORTS SLIGHT NAUSEA AND DISCOMFORT THIS MORNING, DENIES NEED FOR MEDICATION. STATES ITS TOLERABLE. DENIES CP. PERITONEAL DIALYSIS RUNNING T/O NIGHT. DENIES BM. HAD ONE UNMEASURED VOID. [facility] DOWN TIME TONIGHT, HOURLY ROUDING AND ADL ASSISTANCE PROVIDED TO PT. DR. LINARES IN TO SEE PT THIS MORNING. PROVIDER NOTIFIED OF PT'S H/H DECREASE. SHIFT CHANGE REPORT GIVEN TO DAY RNLEONARD.
[2020-05-24] MEDS ORDERED: FERSU300 PO (10:57)
--- NOTE | 2020-05-24 12:35 | NUR ---
DISCHARGE SUMMARY PT A&Ox3; CALM AND COOPERATIVE WITH CARE. PT RESTING IN BED DURING SHIFT, UP IND IN ROOM. THIS AM BP HYPOTENSIVE; LEFT MESSAGE FOR DR JUAN. BP TRENDING UP; NOTIIFIED DR JUAN; NO NEW ORDERS. PT REPORTS LOWER BACK PAIN; DENIED MEDICATIONS. PT DENIES CHEST PAIN, SOB, NAUSEA AND DIZZINESS. NO ACTIVE SIGNS OF BLEEDING. OTHER VSS. NO OTHER ACUTE CHANGES NOTED. PT EDUCATED ON DISCHARGE INSTRUCTIONS, FOLLOW UP APPOINTMENTS AND PRESCRIPTIONS. PT LEFT ROOM VIA WHEELCHAIR AT 1229, PT STABLE UPON DISCHARGE.
== END 2020-05-24 12:29 | disposition home or self-care (01) | DRG 377 ==
LOC: ER 04:58 → PCU 09:11
PROVIDERS: Emergency Medicine; Family Medicine; Internal Medicine Gastroenterology; ADMIT Internal Medicine Gastroenterology
PROC: 0DJD8ZZ Inspection of Lower Intestinal Tract, Via Natural or Artificial Opening Endoscopic (ICD-10-PCS; principal; 2020-05-21 19:00)
PROC: 30233N1 Transfusion of Nonautologous Red Blood Cells into Peripheral Vein, Percutaneous Approach (ICD-10-PCS; 2020-05-22)
DX: K57.31 Diverticulosis of large intestine without perforation or abscess with bleeding (principal); N18.6 End stage renal disease; I12.0 Hypertensive chronic kidney disease with stage 5 chronic kidney disease or end stage renal disease; I25.2 Old myocardial infarction; Z99.2 Dependence on renal dialysis; Z87.891 Personal history of nicotine dependence; N40.0 Benign prostatic hyperplasia without lower urinary tract symptoms; Z79.02 Long term (current) use of antithrombotics/antiplatelets; I25.10 Atherosclerotic heart disease of native coronary artery without angina pectoris; Z95.1 Presence of aortocoronary bypass graft; I35.0 Nonrheumatic aortic (valve) stenosis; E78.5 Hyperlipidemia, unspecified; Z79.82 Long term (current) use of aspirin; K64.8 Other hemorrhoids; K63.5 Polyp of colon; M06.9 Rheumatoid arthritis, unspecified; M54.9 Dorsalgia, unspecified; G89.29 Other chronic pain; M81.0 Age-related osteoporosis without current pathological fracture; R91.8 Other nonspecific abnormal finding of lung field; D50.0 Iron deficiency anemia secondary to blood loss (chronic); I95.9 Hypotension, unspecified
CPT/HCPCS: 36415; 36430; 80048; 80053; 80069; 82272; 82947; 83605; 83735; 84484; 85014; 85018; 85025; 85610; 86850; 86900; 86901; 86923; 93005; 93010; 96374; 96375; 99285-25; A9270-GY; C9113; J0881; J2001; J2060; J2370; J2405; J2704; J3010; J7030; P9016; U0003